=== PATIENT | male | born 1980 | race Caucasian/White ===

== ENCOUNTER → 2018-07-21 16:51 | Outpatient (CLI) | payer OTHER, SELFPAY ==
[2018-07-21 15:40] VITALS: BMI 33.0
[2018-07-21 17:44] LABS: ALB/GLOB Ratio 1.1 RATIO (0.9-2.4); AST(SGOT) 15 U/L (15-37); Alanine Aminotransfer ALT/SGPT 41 U/L (16-61); Alkaline Phosphatase 79 U/L (45-117); Anion Gap 9 (5-15); BUN 10 mg/dL (7-18); BUN/Creat Ratio 10.7 RATIO (10-20); Calcium,Total 9.1 mg/dL (8.5-10.1); Chloride 105 mmol/L (98-107); Creatinine, Serum 0.93 mg/dL (0.70-1.30); EST Glomerular Filtration Rate 96 mL/min (>60); Est Glom Filt Rate - Afr Amer 116 mL/min (>60); Globulin 3.7 g/dL (2.2-4.2); Glucose 163 mg/dL (74-106); Potassium 4.1 mmol/L (3.5-5.1); Protein, Total 7.7 g/dL (6.4-8.2); Sodium Level 141 mmol/L (136-145)
[2018-07-21 17:47] LABS: Microalbumin,Random Urine 10.8 mg/L (NO RANGE EST.); Microalbumin:Creatinine Ratio 8.2 mg/g CRE (<30 mg/g CRE)
[2018-07-21 19:51] LABS: Hemoglobin A1c 8.1 % (4.2-6.3)
== END ==
PROVIDERS: Referring Provider Nurse Practitioner; Visit Provider Nurse Practitioner
DX: E10.9 Type 1 diabetes mellitus without complications (principal)
CPT/HCPCS: 36415; 80053; 82043; 82570; 83036

== ENCOUNTER → 2019-06-01 13:19 | Outpatient (CLI) | payer OTHER, SELFPAY ==
[2018-07-21 15:40] VITALS: BMI 33.0
[2019-06-01 14:49] LABS: Hemoglobin A1c 7.8 % (4.2-6.3)
[2019-06-01 14:50] LABS: Microalbumin,Random Urine 5.2 mg/L (NO RANGE EST.)
[2019-06-01 15:07] LABS: AST(SGOT) 15 U/L (15-37); Alanine Aminotransfer ALT/SGPT 31 U/L (16-61); Albumin, Serum 3.8 g/dL (3.2-5.0); Alkaline Phosphatase 96 U/L (45-117); Anion Gap 6 (5-15); BUN 13 mg/dL (7-18); BUN/Creat Ratio 14.1 RATIO (10-20); Calcium,Total 8.8 mg/dL (8.5-10.1); Chloride 103 mmol/L (98-107); Creatinine, Serum 0.92 mg/dL (0.70-1.30); EST Glomerular Filtration Rate 96 mL/min (>60); Est Glom Filt Rate - Afr Amer 116 mL/min (>60); Globulin 3.9 g/dL (2.2-4.2); Glucose 312 mg/dL (74-106); Protein, Total 7.7 g/dL (6.4-8.2); Sodium Level 134 mmol/L (136-145)
== END ==
PROVIDERS: Referring Provider Nurse Practitioner; Visit Provider Nurse Practitioner
DX: E10.9 Type 1 diabetes mellitus without complications (principal)
CPT/HCPCS: 36415; 80053; 82043; 83036

== ENCOUNTER → 2020-09-01 09:29 | Outpatient (CLI) | payer BC, SELFPAY ==
[2020-09-01 08:35] VITALS: BMI 33.3
[2020-09-01 12:57] LABS: Microalbumin,Random Urine 11.4 mg/L (NO RANGE EST.); Microalbumin:Creatinine Ratio 11.1 mg/g CRE (<30 mg/g CRE)
[2020-09-01 13:07] LABS: AST(SGOT) 15 U/L (15-37); Alanine Aminotransfer ALT/SGPT 35 U/L (16-61); Albumin, Serum 3.9 g/dL (3.2-5.0); Alkaline Phosphatase 84 U/L (45-117); Anion Gap 7 (5-15); BUN 18 mg/dL (7-18); BUN/Creat Ratio 22.2 RATIO (10-20); Chloride 107 mmol/L (98-107); Cholesterol 198 mg/dL (200); Creatinine, Serum 0.81 mg/dL (0.70-1.30); EST Glomerular Filtration Rate 111 mL/min (>60); Est Glom Filt Rate - Afr Amer 134 mL/min (>60); Globulin 3.9 g/dL (2.2-4.2); Glucose 120 mg/dL (74-106); High Density Lipoprotein 52 mg/dL; Potassium 4.4 mmol/L (3.5-5.1); Protein, Total 7.8 g/dL (6.4-8.2); Sodium Level 139 mmol/L (136-145); Triglycerides 100 mg/dL; Very Low Density Lipoprotein 20 mg/dL (5-40)
== END ==
PROVIDERS: Referring Provider Internal Medicine Endocrinology, Diabetes & Metabolism; Visit Provider Internal Medicine Endocrinology, Diabetes & Metabolism
DX: E10.65 Type 1 diabetes mellitus with hyperglycemia (principal)
CPT/HCPCS: 36415; 80053; 80061; 82043; 82570; 84443

== ENCOUNTER 2021-06-14 11:05 | Inpatient (IN) | payer BC, SELFPAY ==
[2021-06-14] VITALS (10 sets, daily range): BP systolic 131–174; BP diastolic 86–103; PULSE 71–125; RESP 14–22; TEMP 35.8–37.2; O2SAT 95–99; BMI 33.3; BMI 33.0
--- NOTE | 2021-06-14 11:08 | NURSING ---
NO OLD EKGS
--- NOTE | 2021-06-14 11:23 | EKG12_ITS ---
Test Reason : CP Blood Pressure : / mmHG Vent. Rate : 077 BPM Atrial Rate : 077 BPM P-R Int : 138 ms QRS Dur : 082 ms QT Int : 356 ms P-R-T Axes : 019 002 054 degrees QTc Int : 402 ms Normal sinus rhythm Normal ECG Confirmed by CABRERA SANDHU, CAMILLE ([id number]), photo editor ENRIQUE RICK ([id number]) on 06/15/2021 11:33:30 AM Referred By: GHAZAL Confirmed By:CMAILLE REES MD
--- NOTE | 2021-06-14 11:24 | EDS_ITS ---
HPI History of Present Illness Chief Complaint: Chest Pain Narrative Narrative: Patient presents from Dr. Pettit's office with signs concerning for angina. He states that over the last few days he has had relatively constant chest pain and tightness. 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 He denies any nausea or vomiting. No diaphoresis. He felt short of breath and had to rest. Past medical history includes type 1 diabetes. He denies any family history of early heart attack was at age 53. No leg swelling. No true exacerbating or alleviating factors over the past few days except for today. He felt more pressure in his chest and GERD-like symptoms, thinking that he may have missed a dose of his famotidine. [facility] Medical History (Updated 06/14/21 @ 12:46 by Jori Whiting MD) Diabetes Hives Seasonal allergies Type 1 diabetes mellitus without complications Home Medications blood sugar diagnostic #10 ea 06/18/18 [History Last Taken Unknown] insulin syringe-needle U-100 1 mL 31 gauge x 11/20 #10 ea 06/18/18 [History Last Taken Unknown] blood-glucose transmitter #1 ea 09/01/20 [Rx Last Taken Unknown] famotidine 20 mg tablet 20 mg PO BID 09/01/20 [History Last Taken 06/14/21 07:00] Humalog U-100 Insulin 100 unit/mL subcutaneous solution See Rx Instructions SC .COMPLEX #90 ml NS 11/28/20 [Rx Last Taken 06/14/21] Dexcom G6 Sensor #9 ea NS 12/08/20 [Rx Last Taken Unknown] cetirizine [Zyrtec] 10 mg PO DAILY 06/14/21 [History Last Taken 06/13/21] Allergy/AdvReac Type Severity Reaction Status Date / Time No Known Allergies Allergy Verified 06/14/21 11:05 Family History Son Diabetes Other Anxiety CAD (coronary artery disease) Depression Surgical History History of tonsillectomy Social History adopted: No Smoking Status: Never smoker Electronic Cigarette Use: not used alcohol intake: current alcohol intake frequency: holidays/special occasions only Alcohol type: beer substance use type: does not use what type of physical activity do you participate in: walking frequency: 5-6 times per week seatbelt use: always do you feel safe at home: Yes ROS ROS ED ROS Narrative Constitutional: No fever, no chills. HEENT: No sore throat. No neck pain. No loss of vision. No rhinorrhea. Cardiovascular: Positive chest tightness, central type chest pain. No palpitations. No pedal edema. Respiratory: No cough, positive shortness of breath with dyspnea on exertion. Abdominal: No abdominal pain. No nausea. No vomiting. Genitourinary: No dysuria. No hematuria. Musculoskeletal: No myalgias. No arthralgias. Neurologic: No headaches. No dizziness. No lightheadedness. Skin: No rash. No change in color. Psychiatric: No depression. No anxiety. EXAM Physical Exam Narrative Exam Narrative: Afebrile. Vital signs noted. HEENT: Normocephalic. Atraumatic. PERRL, EOMI. Neck soft and supple. No point tenderness or step off. Cardiovascular: Regular rate and rhythm. No murmurs, rubs, or gallops appreciated. Respiratory: No tachypnea. Lungs clear to auscultation bilaterally. Gastrointestinal: Abdomen soft, nontender, with normoactive bowel sounds. No rebound or guarding. Neurological: Awake. Alert. Nonfocal, nonlateralizing. Skin: No rash. Normal color. No pallor. Musculoskeletal: No pedal edema. Full range of motion extremities. Const Vital Signs: 06/14/21 11:06 06/14/21 12:23 Temperature 96.5 F L Temperature Source Temporal Pulse Rate 94 71 Respiratory Rate 16 17 Blood Pressure 160/103 H 158/90 H Blood Pressure Mean 122 112 Pulse Ox 99 97 Oxygen Delivery Method Room Air Room Air Heart Score History: Slightly/Non-Suspicious ECG: Normal Age: </= 45 years Risk Factors: 1 or 2 Risk Factors Score: 1 MDM MDM MDM Narrative Medical decision making narrative: Chest pain work-up was pursued. His EKG demonstrates normal sinus rhythm at 77 bpm without ectopy or acute ST changes. I reviewed the EKG that was sent with him which also demonstrates normal sinus rhythm at 69 bpm without ectopy or acute ST changes. He was administered an aspirin here. I will obtain a chest x-ray along with laboratory work including troponin and D-dimer. He does have an elevated blood pressure of 160/103 here. His oxygen saturation is 99% on room air without evidence of hypoxia. He has a normal CBC with hemoglobin stable at 14.3, normal platelet count. D- dimer is negative. Basic metabolic panel is grossly normal. His troponin is elevated at 785. Chest x-ray shows no acute process. Given his non- STEMI/elevated troponin, I discussed the patient with Dr. Barrett. He would like the patient to be given Brilinta in addition to the aspirin already given, and started on a heparin drip with a bolus. He was started on weight-based heparin. Patient was discussed with the hospitalist for admission to the PCU. He has the possibility of going to the catheterization lab tomorrow morning so he should be made n.p.o. after midnight. Disposition is admit in stable condition. Lab Data Attestation: I reviewed the patient's lab results. Labs: Laboratory Results - last 24 hr 06/14/21 06/14/21 06/14/21 11:45 11:45 11:45 WBC 7.2 RBC 5.67 Hgb 14.3 Hct 44.0 MCV 77.6 L MCH 25.2 L MCHC 32.5 RDW Std Deviation 38.6 RDW Coeff of Dayana 13.8 Plt Count 335 MPV 9.1 Immature Gran % (Auto) 0.300 Neut % (Auto) 75.2 H Lymph % (Auto) 15.9 L Hooker % (Auto) 6.5 Eos % (Auto) 1.5 Baso % (Auto) 0.6 Absolute Neuts (auto) 5.4 Absolute Lymphs (auto) 1.15 Nucleated RBC % 0 PT INR APTT D-Dimer Quant (PE/DVT) <= 0.27 Sodium 140 Potassium 4.1 Chloride 104 Carbon Dioxide 25.0 Anion Gap 11 BUN 14 Creatinine 0.91 Estim Creat Clear Calc 98.87 Est GFR (MDRD) Af Amer 117 Est GFR (MDRD) Non-Af 97 BUN/Creatinine Ratio 15.4 Glucose 82 Calcium 10.0 Troponin I High Sens 785 H* 06/14/21 11:45 WBC RBC Hgb Hct MCV MCH MCHC RDW Std Deviation RDW Coeff of Dayana Plt Count MPV Immature Gran % (Auto) Neut % (Auto) Lymph % (Auto) Hooker % (Auto) Eos % (Auto) Baso % (Auto) Absolute Neuts (auto) Absolute Lymphs (auto) Nucleated RBC % PT 12.2 INR 1.0 APTT 27.7 D-Dimer Quant (PE/DVT) Sodium Potassium Chloride Carbon Dioxide Anion Gap BUN Creatinine Estim Creat Clear Calc Est GFR (MDRD) Af Amer Est GFR (MDRD) Non-Af BUN/Creatinine Ratio Glucose Calcium Troponin I High Sens Radiography Diagnostic Testing: Clinical Impression(s) from Imaging Studies Chest X-Ray 06/14/21 11:56 IMPRESSION: Normal x-ray examination of the chest. Electronically Signed: Girma Clayton MD at 12:29 EST , Service support , Critical Care Time Critical care time (excluding procedures): 30-74 minutes (32), Including time spent:, Discussing w/Patient &/or Family/Behavioral Health Consultant, Discussing w/Consultants and Arranging Admission or Transfer Discharge Plan Dx/Rx/DC Orders Clinical Impression: Chest pain, Non-ST elevated myocardial infarction (non-STEMI) Disposition Disposition: Acute Care Hospital [facility] Discharge Date/Time: 06/14/21 13:32
--- NOTE | 2021-06-14 11:56 | RAD_ITS ---
STUDY: X-RAY CHEST REASON FOR EXAM: Male, 40 years old. Chest pain TECHNIQUE: Single AP portable view of the chest. COMPARISON: None. FINDINGS: EKG electrodes are seen. The lungs are clear and expanded. There is no demonstrated pleural abnormality. Normal size heart. Normal mediastinum and gregorio. Normal visualized pulmonary arteries. Normal visualized aortic arch and descending thoracic aorta. Normal visualized thoracic spine. Normal visualized ribs, clavicles, and shoulders. There is no demonstrated abnormality of the visualized soft tissue structures of the upper abdomen. RAD/Chest 1 View (Portable) IMPRESSION: Normal x-ray examination of the chest. Electronically Signed: Girma Clayton MD at 12:29 EST , Service support ,
[2021-06-14] MEDS: Aspirin 81 MG TAB.CHEW 324 MG PO (11:59)
[2021-06-14 12:03] LABS: Absolute Lymphocyte Count 1.15 X10^3/uL (0.83-4.51); Absolute Neutrophil Count 5.4 X10^3/uL (2.0-7.7); Basophil# 0.04 X10^3/uL; Basophil% 0.6 % (0-1); Eosinophil# 0.11 X10^3/uL; Eosinophils% 1.5 % (0-5); Hemoglobin 14.3 g/dL (13.0-16.5); Lymphocyte # 1.15 X10^3/ul (0.83-4.51); Lymphocyte % 15.9 % (19-41); Mean Corp Hgb Conc 32.5 g/dL (32-36); Mean Corpuscular Hgb 25.2 pg (27.0-32.0); Mean Corpuscular Volume 77.6 fL (80-94); Mean Platelet Vol. 9.1 fl (6.2-12.0); Monocyte# 0.47 X10^3/uL; Monocyte% 6.5 % (0-10); NRBC Flagged by Analyzer 0 % (0-5); Neutrophil # 5.44 X10^3/uL (2.7-7.7); Neutrophil % 75.2 % (47-70); Platelet Count 335 K/mm3 (150-450); RBC Distribution Width CV 13.8 % (11.6-14.6); RBC Distribution Width SD 38.6 fl (35.1-43.9); Red Blood Count 5.67 M/mm3 (4.6-6.2); White Blood Count 7.2 K/mm3 (4.4-11.0)
[2021-06-14 12:22] LABS: Anion Gap 11 (5-15); BUN 14 mg/dL (7-18); BUN/Creat Ratio 15.4 RATIO (10-20); Chloride 104 mmol/L (98-107); Creatinine, Serum 0.91 mg/dL (0.70-1.30); EST Glomerular Filtration Rate 97 mL/min (>60); Est Glom Filt Rate - Afr Amer 117 mL/min (>60); Estimated Creatinine Clearance 98.87 ml/min; Glucose 82 mg/dL (74-106); Potassium 4.1 mmol/L (3.5-5.1); Sodium Level 140 mmol/L (136-145); Troponin-I HS 785 pg/mL (3.0-78.0)
[2021-06-14 12:28] LABS: D-Dimer Quantitative (DVT/PE) <= 0.27 FEU/ug/m (0.27-0.49)
--- NOTE | 2021-06-14 12:47 | PCM.HP.STD ---
HPI - General General Date of Admission: 06/14/21 Date of Service: 06/14/21 Chief Complaint: Chest pain - 3 days HPI Narrative MALU TORIBIO, is a 40 M who presents with chest pain ongoing for 3 days. Patient had complained of chest discomfort that was substernal. He thought it was due to indigestion. This got worse today. It radiated to his left arm. Denied any dizziness or palpitations or orthopnea or PND. He went to his primary care doctor, EKG was unremarkable. Primary care doctor however sent him to the ED. At time of being seen, his vitals are stable. His EKG shows no acute ST changes. Troponins are 1255. D-dimer is unremarkable. Chest x-ray is unremarkable [facility] Medical History Diabetes Hives Seasonal allergies Type 1 diabetes mellitus without complications Home Medications blood sugar diagnostic #10 ea 06/18/18 [History Last Taken Unknown] insulin syringe-needle U-100 1 mL 31 gauge x 11/20 #10 ea 06/18/18 [History Last Taken Unknown] blood-glucose transmitter #1 ea 09/01/20 [Rx Last Taken Unknown] famotidine 20 mg tablet 20 mg PO BID 09/01/20 [History Last Taken 06/14/21 07:00] Humalog U-100 Insulin 100 unit/mL subcutaneous solution See Rx Instructions SC .COMPLEX #90 ml NS 11/28/20 [Rx Last Taken 06/14/21] Dexcom G6 Sensor #9 ea NS 12/08/20 [Rx Last Taken Unknown] cetirizine [Zyrtec] 10 mg PO DAILY 06/14/21 [History Last Taken 06/13/21] Allergy/AdvReac Type Severity Reaction Status Date / Time No Known Allergies Allergy Verified 06/14/21 11:05 Family History Son Diabetes Other Anxiety CAD (coronary artery disease) Depression Surgical History History of tonsillectomy Social History adopted: No Smoking Status: Never smoker Electronic Cigarette Use: not used alcohol intake: current alcohol intake frequency: holidays/special occasions only Alcohol type: beer substance use type: does not use what type of physical activity do you participate in: walking frequency: 5-6 times per week seatbelt use: always do you feel safe at home: Yes ROS ROS Narrative Constitutional: Denies: Anorexia, Chills, Fever, Night Sweats, Weight Change Eyes: Denies: Blurred vision, Cataracts, Conjunctivae Inflammation, Pain, Redness, Vision Change HEENT: Denies: Difficulty Hearing, Difficulty Swallowing, Head Aches, Hearing Changes, Sinus Congestion, Sinus Drainage Cardiovascular: See HPI Respiratory: Denies: Cough, Shortness of breath at rest, Sputum production Gastrointestinal: Denies: Abdominal Pain, Nausea, Vomiting Genitourinary: Denies: Dysuria Musculoskeletal: Denies: Joint Pain, Joint stiffness, Joint swelling, Joint Tenderness Skin: Denies: Rash, Wounds Neurological: Denies: Numbness, Tingling, Focal weakness Vital Signs Vital Signs Vital Signs: 06/14/21 11:06 06/14/21 12:23 Temperature 96.5 F L Temperature Source Temporal Pulse Rate 94 71 Respiratory Rate 16 17 Blood Pressure 160/103 H 158/90 H Blood Pressure Mean 122 112 Pulse Ox 99 97 Oxygen Delivery Method Room Air Room Air Weight Weight: 96.6 kg Body Mass Index (BMI) 33.3 Physical Exam Narrative Physical exam: General: Alert, Oriented x3, Cooperative, No apparent distress, Well developed HEENT: Atraumatic Oral: Moist Mucosa Neck: Supple Lungs: Clear to auscultation Cardiovascular: HS I+II, regular, no murmurs Abdomen: Bowel Sounds Present, Soft, Non Tender Extremities: No edema Results Lab / Micro Data Result Diagrams: 06/14/21 11:45 06/14/21 11:45 Labs: Laboratory Results - last 24 hr 06/14/21 11:45: WBC 7.2, RBC 5.67, Hgb 14.3, Hct 44.0, MCV 77.6 L, MCH 25.2 L, MCHC 32.5, RDW Std Deviation 38.6, RDW Coeff of Dayana 13.8, Plt Count 335, MPV 9.1, Immature Gran % (Auto) 0.300, Neut % (Auto) 75.2 H, Lymph % (Auto) 15.9 L, Fergus % (Auto) 6.5, Eos % (Auto) 1.5, Baso % (Auto) 0.6, Absolute Neuts (auto) 5.4, Absolute Lymphs (auto) 1.15, Nucleated RBC % 0 06/14/21 11:45: D-Dimer Quant (PE/DVT) <= 0.27 06/14/21 11:45: Sodium 140, Potassium 4.1, Chloride 104, Carbon Dioxide 25.0, Anion Gap 11, BUN 14, Creatinine 0.91, Estim Creat Clear Calc 98.87, Est GFR (MDRD) Af Amer 117, Est GFR (MDRD) Non-Af 97, BUN/Creatinine Ratio 15.4, Glucose 82, Calcium 10.0, Troponin I High Sens 785 H* Radiology Impression Chest X-Ray 06/14/21 11:56 IMPRESSION: Normal x-ray examination of the chest. Electronically Signed: Girma Clayton MD at 12:29 EST , Service support , Assessment & Plan Assessment/Plan (1) Chest pain: (2) Non-ST elevated myocardial infarction (non-STEMI): (3) Diabetes mellitus type 1, uncontrolled, without complications: (4) Presence of insulin pump: PLAN: 1. Acute non-STEMI, in a patient with history of type I DM EKG shows no acute ST-T changes, troponin is 1255 Cardiology consulted from the ED Received aspirin and Brilinta, started on heparin drip We will trend troponins 2. Type I DM, on insulin pump, continue same 3. Hypertension, uncontrolled, will start on Coreg Continue to monitor Charges/Coding Visit Charges Inpatient E&M: 33804 Init Hosp L3
[2021-06-14] MEDS: TICAGRELOR 90 MG TABLET 180 MG PO (13:00)
[2021-06-14] MEDS: Heparin Injection (Vial) 5,000 UNIT/ML VIAL 7500 UNIT IV (13:05)
[2021-06-14] MEDS: HEPARIN/D5w 25,000 UNITS 25,000 UNITS/250 ML IV.SOLN. 14 UNITS IV (13:06)
--- NOTE | 2021-06-14 13:06 | NURSING ---
PCU [facility] NON STEMI
[2021-06-14 13:40] LABS: Prothrombin Time (Protime)PT. 12.2 SECONDS (11.7-14.9)
[2021-06-14 13:41] LABS: Partial Thromboplast Time 27.7 Seconds (24.1-36.2)
--- NOTE | 2021-06-14 13:50 | PCS.PANDOC ---
PANDEMIC DOCUMENTATION INITIATED: Date: 02/20/2021 Time: 190
--- NOTE | 2021-06-14 13:57 | ECHOD_ITS ---
Reason For Study: S/P CO Procedure This was a 2D Doppler, Color Flow transthoracic echocardiogram. The study was technically difficult. Exam performed portable in patient room. Left Ventricle Normal LV size. Left ventricular systolic function is normal. The estimated ejection fraction is 55 %. No evidence for diastolic dysfunction. No regional wall motion abnormalities noted. Right Ventricle Normal RV size. Normal systolic function. Atria Normal left atrium. Normal right atrium. No doppler evidence for ASD. Bubble contrast study negative for right to left interatrial shunt. Mitral Valve There is no mitral annular calcification. Normal mitral valve. Trivial mitral valve insufficiency. Tricuspid Valve Normal tricuspid valve. Trivial tricuspid valve insufficiency. Right ventricular systolic pressure estimated to be 23 mmHg. Aortic Valve Trisinus/trileaflet aortic valve. Normal aortic valve. Trivial eccentric aortic valve insufficiency. Pulmonic Valve The pulmonic valve is not well visualized. Great Vessels Normal sized aortic root. Pericardium/Pleural No pericardial effusion. Medication Performed a rapid injection of agitated mix of 9 cc saline and 1cc air to assess for atrial septal defect. MMode/2D Measurements & Calculations LVIDd: 4.2 cm IVSd: 0.98 cm Ao root diam: 3.0 cm LVIDs: 3.0 cm LVPWd: 0.97 cm RVDd: 3.0 cm FS: 29.1 % LAV(MOD-bp): 24.7 ml LVAd ap4: 24.6 cm2 LVAd ap2: 28.0 cm2 LAV(MOD-bp) Indexed: 12.0 ml/m2 LVLd ap4: 7.9 cm LVLd ap2: 7.8 cm LAV(MOD-sp2): 25.9 ml EDV(MOD-sp4): 62.8 ml EDV(MOD-sp2): 84.3 ml LAV(MOD-sp4): 23.9 ml EDV(sp4-el): 65.0 ml EDV(sp2-el): 85.6 ml LVAs ap4: 13.9 cm2 LVAs ap2: 16.3 cm2 LVLs ap4: 6.5 cm LVLs ap2: 6.3 cm ESV(MOD-sp4): 25.1 ml ESV(MOD-sp2): 35.9 ml ESV(sp4-el): 25.1 ml ESV(sp2-el): 35.9 ml EF(MOD-sp4): 60.1 % EF(MOD-sp2): 57.4 % EF(sp4-el): 61.5 % SV(MOD-sp4): 37.7 ml SV(MOD-sp2): 48.4 ml SV(sp4-el): 40.0 ml LA A4 area: 11.9 cm2 LA dimension(2D): 3.6 cm RA A4 area: 11.2 cm2 Time Measurements MV dec time: 0.20 sec Doppler Measurements & Calculations MV E max anand: 71.1 cm/sec Lat Peak E' Anand: 14.3 cm/sec Med Peak E' Anand: 8.6 cm/sec MV A max anand: 73.4 cm/sec E/E' lat: 5.0 E/E' med: 8.3 MV E/A: 0.97 Ao V2 max: 122.8 cm/sec LV V1 max: 80.4 cm/sec PA V2 max: 133.3 cm/sec Ao max P.0 mmHg LV V1 max P.6 mmHg TR max anand: 222.8 cm/sec TR max P.9 mmHg ECHO/Echo Complete Interpretation Summary The study was technically difficult. Left ventricular systolic function is normal. The estimated ejection fraction is 55 %. Trivial mitral valve insufficiency. Trivial tricuspid valve insufficiency. Trivial eccentric aortic valve insufficiency. Right ventricular systolic pressure estimated to be 23 mmHg. No evidence for diastolic dysfunction. Ordering Physician: Deepak Barrett Referring Physician: KWAME SORIANO Performed By: Oralia Mcneal RDCS
--- NOTE | 2021-06-14 14:09 | CASEMGMT ---
According to [facility] website, the following are in-network tertiary facilities: [facility], [facility], [facility], [facility], [facility], [facility], [facility], and . Bret CRUZ CM
[2021-06-14 14:44] LABS: Troponin-I HS 1255 pg/mL (3.0-78.0)
--- NOTE | 2021-06-14 16:00 | NURSING ---
Patient has own insulin pump. Per Dr. Annabella cha to monitor patient's BG with his pump.
[2021-06-14 18:24] LABS: Troponin-I HS 1355 pg/mL (3.0-78.0)
--- NOTE | 2021-06-14 18:30 | CON.PCM.CA_ITS ---
Assessment & Plan Assessment/Plan (1) Non-ST elevated myocardial infarction (non-STEMI): PLAN: The patient has cardiovascular risk factors. He presents with symptoms concerning for unstable angina pectoris/an acute cor onary syndrome. His cardiac enzymes are elevated. His ECG has not demonstrated any acute ECG changes. His echocardiogram is as noted. At the moment without other obvious etiologies to explain his symptoms or cardiac enzyme findings the concern is that he has experienced an acute non-ST segment elevation CA. He appears to be symptomatically improved at this time on his current medical regimen. He will continue to be followed with his medications being adjusted as deemed appropriate. He has been recommended for further evaluation with diagnostic cardiac catheterization. The procedure and risk were discussed with him. He is agreeable to this approach. (2) Diabetes: QUALIFIERS: Diabetes mellitus type: type 1 Diabetes mellitus complication status: with hyperglycemia Qualified Code(s): E10.65 - Type 1 diabetes mellitus with hyperglycemia PLAN: He will continue evaluation care per internal medicine. (3) HTN (hypertension): PLAN: His blood pressure was noted to be elevated. This will need to be followed. He may need further medication adjustment. Addt'l Comments The patient's case has been previously discussed with the [facility] emergency department staff and the [facility] hospital staff. This note was generated using a voice recognition system and there may be incorrect words, spelling or punctuation that were not noted when reviewing the office note prior to saving. HPI Consult Data Date of Consult: 06/14/21 HPI Narrative HPI Narrative: MALU TORIBIO, is a 40 year old white male who presents for cardiovascular consultation based upon concerns of chest discomfort concerning for unstable angina pectoris/acute coronary syndrome and objective findings compatible with acute non-ST segment elevation CA superimposed upon a history of diabetes mellitus-type I. He states that yesterday he noted a chest discomfort which radiated to his throat with a acid sensation that he felt was related to GERD. However this symptom waxed and waned through the night and into this day. Today while at work with walking he noted worsening chest discomfort which radiated towards his left chest and his back and was associated with shortness of breath and dyspnea. He had to stop and rest to feel better. He presented to his PCP office for further evaluation. An ECG was performed which demonstrated sinus rhythm with no acute changes. He was referred to the emergency department for further evaluation. There he underwent additional evaluation with cardiac enzymes which demonstrated an abnormal high-sensitivity troponin I level. A repeat ECG demonstrated sinus rhythm with no acute changes. He had no other obvious etiology for his symptoms and his cardiac enzyme levels. Thus he was admitted to the PCU for further evaluation and care for concerns of an acute non-ST segment elevation CA. Since being in the PCU and at rest he states every thing seems to be calming down. He is not complaining of ongoing discomfort at this time. There is been no history of orthopnea or PND or peripheral pitting edema. He denies near syncope or syncope. He states he has had a insulin pump since approximately the age of 20-22. He notes his hemoglobin A1c runs at approximately 7.2. He does not recall having any definitive issues with respect to hyperlipidemia or hypertension. He has not gone through other cardiovascular testing in the past. Since being in the PCU he has been placed on medical therapy. This has included aspirin therapy, antiplatelet therapy with ticagrelor/Brilinta, anticoagulant therapy with IV heparin, and beta-linda therapy. His follow-up troponin I level has increased. Additional levels are pending. A follow-up ECG is pending. Lipid labs are pending as well. He did undergo evaluation with a transthoracic echocardiogram. The results are noted below. REPLACED BY [facility] Medical History (Updated 06/14/21 @ 18:[address] Deepak Barrett MD) Diabetes Hives Seasonal allergies Type 1 diabetes mellitus without complications Home Medications blood sugar diagnostic #10 ea 06/18/18 [History Last Taken Unknown] insulin syringe-needle U-100 1 mL 31 gauge x 11/20 #10 ea 06/18/18 [History Last Taken Unknown] blood-glucose transmitter #1 ea 09/01/20 [Rx Last Taken Unknown] famotidine 20 mg tablet 20 mg PO BID 09/01/20 [History Last Taken 06/14/21 07:00] Humalog U-100 Insulin 100 unit/mL subcutaneous solution See Rx Instructions SC .COMPLEX #90 ml NS 11/28/20 [Rx Last Taken 06/14/21] Dexcom G6 Sensor #9 ea NS 12/08/20 [Rx Last Taken Unknown] cetirizine [Zyrtec] 10 mg PO DAILY 06/14/21 [History Last Taken 06/13/21] Allergy/AdvReac Type Severity Reaction Status Date / Time No Known Allergies Allergy Verified 06/14/21 11:05 Family History Son Diabetes Other Anxiety CAD (coronary artery disease) Depression Surgical History History of tonsillectomy Social History adopted: No Smoking Status: Never smoker Electronic Cigarette Use: not used alcohol intake: current alcohol intake frequency: holidays/special occasions only Alcohol type: beer substance use type: does not use what type of physical activity do you participate in: walking frequency: 5-6 times per week seatbelt use: always do you feel safe at home: Yes ROS Constitutional Constitutional: Reports as per HPI Eyes Eyes: Reports as per HPI ENT HEENT: Reports as per HPI Cardiovascular Cardiovascular: Reports chest pain at rest, chest pain with activity and dyspnea on exertion Respiratory/Chest Respiratory/Chest: Reports dyspnea on exertion Gastrointestinal Gastrointestinal: Reports as per HPI Genitourinary Genitourinary: Reports as per HPI Musculoskeletal Musculoskeletal: Reports as per HPI Integumentary Integumentary: Reports as per HPI Neurologic Neurologic: Reports as per HPI Physical Exam Const alert, oriented x3, no apparent distress and healthy appearing Orientation / Consciousness: awake HEENT normocephalic, head/scalp atraumatic and hearing grossly normal bilaterally Eyes PERRL, EOMs intact bilaterally and conjunctivae normal Neck full ROM, supple and no JVD Resp clear to auscultation bilaterally Cardio regular rate, regular rhythm, S1 normal heart sound and S2 normal heart sound GI normal to inspection, nondistended, normoactive bowel sounds Extremity no pedal edema Skin no rashes or lesions noted Neuro oriented x3, moves all extremities, no focal motor deficits and no sensory deficits noted Psych mental status grossly normal Risk Stratification Risk Stratification Applicable: Yes Age >/= 65: No >/= 3 CAD Risk Factors (HTN, HLD, DM, family hx of CAD, or current smoker): No Aspirin Use in the Past 7 Days: No Severe Angina (>/= episodes in 24 hours): Yes EKG ST Changes >/= 0.5mm: No Positive Cardiac Marker: Yes RUBEN Risk Stratification Score: 2 RUBEN % Risk: 8% Risk Procedure Criteria Type of Procedure Procedure Type: Elective Elective Risks - COVID COVID Risk Discussion: The surgeon/proceduralist and patient have discussed in detail the risk of exposure to and/or potential harm posed by the COVID-19 virus with having a surgery/procedure at this time versus the risk of delaying the surgery/procedure. It is not possible to know either the risk of delaying the surgery or procedure or chance of getting an infection with perfect accuracy, but a joint decision was made between the patient and the surgeon/proceduralist to proceed at this time with the scheduled surgery/procedure as indicated on the consent form. Objective Data Vital Signs: Vital Signs Temp Pulse Resp BP Pulse Ox 97.8 F 108 H 18 150/92 H 99 06/14/21 17:45 06/14/21 17:45 06/14/21 17:45 06/14/21 17:45 06/14/21 17:45 Oxygen Delivery Method Room Air Weight: 211 lb 3.245 oz Body Mass Index (BMI) 33.0 Intake & Output: Intake and Output for Last 24 Hours 06/12/21 06/13/21 06/14/21 23:59 23:59 23:59 Intake Total 240 / 240 Balance 240 / 240 Lab / Micro Data Result Diagrams: 06/14/21 11:45 06/14/21 11:45 Labs: Laboratory Results - last 24 hr 06/14/21 11:45: WBC 7.2, RBC 5.67, Hgb 14.3, Hct 44.0, MCV 77.6 L, MCH 25.2 L, MCHC 32.5, RDW Std Deviation 38.6, RDW Coeff of Dayana 13.8, Plt Count 335, MPV 9.1, Immature Gran % (Auto) 0.300, Neut % (Auto) 75.2 H, Lymph % (Auto) 15.9 L, [place] % (Auto) 6.5, Eos % (Auto) 1.5, Baso % (Auto) 0.6, Absolute Neuts (auto) 5.4, Absolute Lymphs (auto) 1.15, Nucleated RBC % 0 06/14/21 11:45: D-Dimer Quant (PE/DVT) <= 0.27 06/14/21 11:45: Sodium 140, Potassium 4.1, Chloride 104, Carbon Dioxide 25.0, Anion Gap 11, BUN 14, Creatinine 0.91, Estim Creat Clear Calc 98.87, Est GFR (MDRD) Af Amer 117, Est GFR (MDRD) Non-Af 97, BUN/Creatinine Ratio 15.4, Glucose 82, Calcium 10.0, Troponin I High Sens 785 H* 06/14/21 11:45: PT 12.2, INR 1.0, APTT 27.7 06/14/21 14:02: Troponin I High Sens 1255 H* 06/14/21 17:20: Troponin I High Sens 1355 H* Cardiology Labs/Tests 06/14/21 11:45: WBC 7.2, RBC 5.67, Hgb 14.3, Hct 44.0, MCV 77.6 L, MCH 25.2 L, MCHC 32.5, Plt Count 335, MPV 9.1, Immature Gran % (Auto) 0.300, Neut % (Auto) 75.2 H, Lymph % (Auto) 15.9 L, [place] % (Auto) 6.5, Eos % (Auto) 1.5, Baso % (Auto) 0.6, Absolute Neuts (auto) 5.4, Nucleated RBC % 0 06/14/21 11:45: D-Dimer Quant (PE/DVT) <= 0.27 06/14/21 11:45: Sodium 140, Potassium 4.1, Chloride 104, Carbon Dioxide 25.0, Anion Gap 11, BUN 14, Creatinine 0.91, Est GFR (MDRD) Af Amer 117, Est GFR (MDRD) Non-Af 97, BUN/Creatinine Ratio 15.4, Glucose 82, Calcium 10.0 06/14/21 11:45: PT 12.2, INR 1.0, APTT 27.7 Rhythm: Sinus rhythm EKG: Sinus rhythm ECHO: As noted below Radiography Diagnostic Testing: Radiology Impression Chest X-Ray 06/14/21 11:56 IMPRESSION: Normal x-ray examination of the chest. Electronically Signed: Girma Clayton MD at 12:29 EST , Service support , Echocardiogram 06/14/21 13:57 Interpretation Summary The study was technically difficult. Left ventricular systolic function is normal. The estimated ejection fraction is 55 %. Trivial mitral valve insufficiency. Trivial tricuspid valve insufficiency. Trivial eccentric aortic valve insufficiency. Right ventricular systolic pressure estimated to be 23 mmHg. No evidence for diastolic dysfunction. Ordering Physician: Deepak Barrett Referring Physician: KWAME SORIANO Performed By: Oralia Mcneal RDCS
[2021-06-14 20:33] LABS: Partial Thromboplast Time 150.8 Seconds (24.1-36.2)
[2021-06-14] MEDS: Carvedilol 6.25 MG Tablet PO (20:43)
[2021-06-14] MEDS: TICAGRELOR 90 MG TABLET PO (21:13)
[2021-06-14] MEDS: 0.9% Saline Lock 10 ML Syringe IV (23:17)
[2021-06-15] VITALS (19 sets, daily range): BP systolic 98–151; BP diastolic 66–135; PULSE 78–97; RESP 14–18; TEMP 36.6–37.7; O2SAT 96–100
--- NOTE | 2021-06-15 | NURSING ---
Patient removed insulin pump around 0000 as ordered for procedure in AM. Glucose monitoring sensor in place and patient watching BS coverage available at this time patient doesn't want coverage.
--- NOTE | 2021-06-15 02:03 | NURSING ---
Blood sugar checked and decreasing per patient glucose monitoring sensor. Patient declines to have any coverage at this time.
[2021-06-15] MEDS: 0.9% Saline Lock 10 ML Syringe IV ×2 (04:05→07:58)
--- NOTE | 2021-06-15 05:55 | EKG12_ITS ---
Test Reason : AM EKG Blood Pressure : / mmHG Vent. Rate : 080 BPM Atrial Rate : 080 BPM P-R Int : 130 ms QRS Dur : 084 ms QT Int : 370 ms P-R-T Axes : 001 005 034 degrees QTc Int : 426 ms Normal sinus rhythm Poor R wave progression Confirmed by ZOILA SANDHU, LUCINA ([id number]), pharmacology associate ENRIQUE RICK ([id number]) on 06/16/2021 7:52:12 AM Referred By: LUISA Confirmed By:LUCINA CUMMINGS MD
[2021-06-15] MEDS: TICAGRELOR 90 MG TABLET PO ×2 (06:13→20:09)
[2021-06-15] MEDS: Carvedilol 6.25 MG Tablet PO (06:13)
[2021-06-15 06:22] LABS: Absolute Lymphocyte Count 1.23 X10^3/uL (0.83-4.51); Absolute Neutrophil Count 6.3 X10^3/uL (2.0-7.7); Basophil# 0.04 X10^3/uL; Basophil% 0.5 % (0-1); Eosinophil# 0.17 X10^3/uL; Hemoglobin 14.4 g/dL (13.0-16.5); Lymphocyte # 1.23 X10^3/ul (0.83-4.51); Lymphocyte % 14.6 % (19-41); Mean Corpuscular Hgb 25.1 pg (27.0-32.0); Mean Corpuscular Volume 78.4 fL (80-94); Mean Platelet Vol. 9.4 fl (6.2-12.0); Monocyte% 8.3 % (0-10); NRBC Flagged by Analyzer 0 % (0-5); Neutrophil # 6.27 X10^3/uL (2.7-7.7); Neutrophil % 74.2 % (47-70); Platelet Count 351 K/mm3 (150-450); RBC Distribution Width CV 14.1 % (11.6-14.6); RBC Distribution Width SD 39.3 fl (35.1-43.9); Red Blood Count 5.74 M/mm3 (4.6-6.2); White Blood Count 8.4 K/mm3 (4.4-11.0)
[2021-06-15 07:12] LABS: ALB/GLOB Ratio 0.9 RATIO (0.9-2.4); AST(SGOT) 33 U/L (15-37); Alanine Aminotransfer ALT/SGPT 37 U/L (16-61); Albumin, Serum 3.8 g/dL (3.2-5.0); Alkaline Phosphatase 70 U/L (45-117); Anion Gap 8 (5-15); BUN 13 mg/dL (7-18); BUN/Creat Ratio 13.7 RATIO (10-20); Calcium,Total 9.1 mg/dL (8.5-10.1); Chloride 104 mmol/L (98-107); Cholesterol 163 mg/dL (200); Creatinine, Serum 0.95 mg/dL (0.70-1.30); EST Glomerular Filtration Rate 93 mL/min (>60); Est Glom Filt Rate - Afr Amer 112 mL/min (>60); Globulin 4.1 g/dL (2.2-4.2); Glucose 79 mg/dL (74-106); High Density Lipoprotein 49 mg/dL; Potassium 4.2 mmol/L (3.5-5.1); Protein, Total 7.9 g/dL (6.4-8.2); Sodium Level 137 mmol/L (136-145); Triglycerides 71 mg/dL; Troponin-I HS 1901 pg/mL (3.0-78.0); Very Low Density Lipoprotein 14 mg/dL (5-40)
--- NOTE | 2021-06-15 07:33 | PN.CARD_ITS ---
Subjective Subjective The patient is awake and alert this morning. He states when he was up and ambulating in his room to the bathroom he did feel an element of chest discomfort. Again it radiated towards his back. After resting he states his symptoms dissipated. He states he is resting comfortably at the moment. Objective Data Vital Signs: Vital Signs Temp Pulse Resp BP Pulse Ox 99.8 F H 85 16 128/85 H 98 06/15/21 06:30 06/15/21 06:30 06/15/21 06:30 06/15/21 06:30 06/15/21 06:30 Oxygen Delivery Method Room Air Weight: 210 lb 12.191 oz Body Mass Index (BMI) 33.0 Intake & Output: Intake and Output for Last 24 Hours 06/13/21 06/14/21 06/15/21 23:59 23:59 23:59 Intake Total 347.1 / 347.1 153.17 / 153.17 Output Total 150 / 150 Balance 347.1 / 347.1 3.17 / 3.17 Lab / Micro Data Result Diagrams: 06/15/21 05:46 06/15/21 05:46 Labs: Laboratory Results - last 24 hr 06/14/21 11:45: WBC 7.2, RBC 5.67, Hgb 14.3, Hct 44.0, MCV 77.6 L, MCH 25.2 L, MCHC 32.5, RDW Std Deviation 38.6, RDW Coeff of Dayana 13.8, Plt Count 335, MPV 9.1, Immature Gran % (Auto) 0.300, Neut % (Auto) 75.2 H, Lymph % (Auto) 15.9 L, [place] % (Auto) 6.5, Eos % (Auto) 1.5, Baso % (Auto) 0.6, Absolute Neuts (auto) 5.4, Absolute Lymphs (auto) 1.15, Nucleated RBC % 0 06/14/21 11:45: D-Dimer Quant (PE/DVT) <= 0.27 06/14/21 11:45: Sodium 140, Potassium 4.1, Chloride 104, Carbon Dioxide 25.0, Anion Gap 11, BUN 14, Creatinine 0.91, Estim Creat Clear Calc 98.87, Est GFR (MDRD) Af Amer 117, Est GFR (MDRD) Non-Af 97, BUN/Creatinine Ratio 15.4, Glucose 82, Calcium 10.0, Troponin I High Sens 785 H* 06/14/21 11:45: PT 12.2, INR 1.0, APTT 27.7 06/14/21 14:02: Troponin I High Sens 1255 H* 06/14/21 17:20: Troponin I High Sens 1355 H* 06/14/21 19:15: APTT 150.8 H* 06/15/21 05:46: WBC 8.4, RBC 5.74, Hgb 14.4, Hct 45.0, MCV 78.4 L, MCH 25.1 L, MCHC 32.0, RDW Std Deviation 39.3, RDW Coeff of Dayana 14.1, Plt Count 351, MPV 9.4, Immature Gran % (Auto) 0.400, Neut % (Auto) 74.2 H, Lymph % (Auto) 14.6 L, [place] % (Auto) 8.3, Eos % (Auto) 2.0, Baso % (Auto) 0.5, Absolute Neuts (auto) 6.3, Absolute Lymphs (auto) 1.23, Nucleated RBC % 0 06/15/21 05:46: Sodium 137, Potassium 4.2, Chloride 104, Carbon Dioxide 25.0, Anion Gap 8, BUN 13, Creatinine 0.95, Estim Creat Clear Calc 94.70, Est GFR (MDRD) Af Amer 112, Est GFR (MDRD) Non-Af 93, BUN/Creatinine Ratio 13.7, Glucose 79, Calcium 9.1, Total Bilirubin 0.60, AST 33, ALT 37, Alkaline Phosphatase 70, Troponin I High Sens 1901 H*, Total Protein 7.9, Albumin 3.8, Globulin 4.1, Albumin/Globulin Ratio 0.9, Triglycerides 71, Cholesterol 163, LDL Cholesterol 100, VLDL Cholesterol 14, HDL Cholesterol 49 Cardiology Labs/Tests 06/14/21 11:45: WBC 7.2, RBC 5.67, Hgb 14.3, Hct 44.0, MCV 77.6 L, MCH 25.2 L, MCHC 32.5, Plt Count 335, MPV 9.1, Immature Gran % (Auto) 0.300, Neut % (Auto) 75.2 H, Lymph % (Auto) 15.9 L, [place] % (Auto) 6.5, Eos % (Auto) 1.5, Baso % (Auto) 0.6, Absolute Neuts (auto) 5.4, Nucleated RBC % 0 06/14/21 11:45: D-Dimer Quant (PE/DVT) <= 0.27 06/14/21 11:45: Sodium 140, Potassium 4.1, Chloride 104, Carbon Dioxide 25.0, Anion Gap 11, BUN 14, Creatinine 0.91, Est GFR (MDRD) Af Amer 117, Est GFR (MDRD) Non-Af 97, BUN/Creatinine Ratio 15.4, Glucose 82, Calcium 10.0 06/14/21 11:45: PT 12.2, INR 1.0, APTT 27.7 06/14/21 19:15: APTT 150.8 H* 06/15/21 05:46: WBC 8.4, RBC 5.74, Hgb 14.4, Hct 45.0, MCV 78.4 L, MCH 25.1 L, MCHC 32.0, Plt Count 351, MPV 9.4, Immature Gran % (Auto) 0.400, Neut % (Auto) 74.2 H, Lymph % (Auto) 14.6 L, [place] % (Auto) 8.3, Eos % (Auto) 2.0, Baso % (Auto) 0.5, Absolute Neuts (auto) 6.3, Nucleated RBC % 0 06/15/21 05:46: Sodium 137, Potassium 4.2, Chloride 104, Carbon Dioxide 25.0, Anion Gap 8, BUN 13, Creatinine 0.95, Est GFR (MDRD) Af Amer 112, Est GFR (MDRD) Non-Af 93, BUN/Creatinine Ratio 13.7, Glucose 79, Calcium 9.1, Total Bilirubin 0.60, Triglycerides 71, Cholesterol 163, LDL Cholesterol 100, VLDL Cholesterol 14, HDL Cholesterol 49 Rhythm: Sinus rhythm/sinus tachycardia EKG: Sinus rhythm; no acute ECG changes Radiography Diagnostic Testing: Radiology Impression Chest X-Ray 06/14/21 11:56 IMPRESSION: Normal x-ray examination of the chest. Electronically Signed: Girma Clayton MD at 12:29 EST , Service support , Echocardiogram 06/14/21 13:57 Interpretation Summary The study was technically difficult. Left ventricular systolic function is normal. The estimated ejection fraction is 55 %. Trivial mitral valve insufficiency. Trivial tricuspid valve insufficiency. Trivial eccentric aortic valve insufficiency. Right ventricular systolic pressure estimated to be 23 mmHg. No evidence for diastolic dysfunction. Ordering Physician: Deepak Barrett Referring Physician: KWAME SORIANO Performed By: Oralia Mcneal RDCS Physical Exam Const alert, oriented x3, no apparent distress and healthy appearing Orientation / Consciousness: awake HEENT normocephalic, head/scalp atraumatic and hearing grossly normal bilaterally Eyes PERRL, EOMs intact bilaterally and conjunctivae normal Neck full ROM, supple and no JVD Resp clear to auscultation bilaterally Cardio regular rate, regular rhythm, S1 normal heart sound and S2 normal heart sound GI normal to inspection, nondistended, normoactive bowel sounds Extremity no pedal edema Skin no rashes or lesions noted Neuro oriented x3, moves all extremities, no focal motor deficits and no sensory deficits noted Psych mental status grossly normal Assessment & Plan Assessment/Plan (1) Non-ST elevated myocardial infarction (non-STEMI): PLAN: The patient has cardiovascular risk factors. He presents with symptoms concerning for unstable angina pectoris/an acute coronary syndrome. His cardiac enzymes are elevated. His ECG has not demonstrated any acute ECG changes. His echocardiogram is as noted. At the moment without other obvious etiologies to explain his symptoms or cardiac enzyme findings the concern is that he has experienced an acute non-ST segment elevation [place]. He will continue to be followed with his medications being adjusted as deemed appropriate. He has been recommended for further evaluation with diagnostic cardiac cathet erization. The procedure and risk were discussed with him. He is agreeable to this approach. (2) Diabetes: QUALIFIERS: Diabetes mellitus type: type 1 Diabetes mellitus complication status: with hyperglycemia Qualified Code(s): E10.65 - Type 1 diabetes mellitus with hyperglycemia PLAN: He will continue evaluation care per internal medicine. (3) HTN (hypertension): PLAN: His blood pressure was noted to be elevated. This will need to be followed. He may need further medication adjustment. Addt'l Comments This note was generated using a voice recognition system and there may be incorrect words, spelling or punctuation that were not noted when reviewing the office note prior to saving. Procedure Criteria Type of Procedure Procedure Type: Elective Elective Risks - COVID COVID Risk Discussion: The surgeon/proceduralist and patient have discussed in detail the risk of exposure to and/or potential harm posed by the COVID-19 virus with having a surgery/procedure at this time versus the risk of delaying the surgery/procedure. It is not possible to know either the risk of delaying the surgery or procedure or chance of getting an infection with perfect accuracy, but a joint decision was made between the patient and the surgeon/proceduralist to proceed at this time with the scheduled surgery/procedure as indicated on the consent form.
--- NOTE | 2021-06-15 08:49 | NURSING ---
Report called to [facility].
--- NOTE | 2021-06-15 10:29 | PCI.CARDCATH ---
PCI Cardiac Cath Report PCI Report: Procedure performed; 1. Successful PCI of diffuse mid LAD stenosis with a predilatation using 2 x 20 mm balloon Followed by placement of a drug-eluting stent 2.75 x 2 6 mm/Orsiro With reduction of stenosis from 70 to 0% and maintenance of RUBEN-3 flow preprocedure and post procedure RUBEN III 2. Placement of Perclose to close the right common femoral artery arteriotomy site 3. Placement of TR band to maintain hemostasis of the right radial artery arteriotomy site Consent; Risk and benefit of the procedure explained detail to the patient elected to proceed informed consent obtained. Preprocedure diagnosis 40-year-old patient with history of type 1 diabetes mellitus has been on insulin pump with titration History of hypertension presented with symptoms of chest pain with a clinical diagnosis of non-ST elevation TN Based on the clinical presentation underwent cardiac catheterization today by his primary medical records director Dr. Barrett and showed left main normal angiographically no significant obstructive atherosclerosis noted in the dominant large RCA or the left circumflex Diffuse atherosclerosis of the mid LAD which is intermediate lesion between the 2 diagonal branches he was treated with the dual antiplatelet Brilinta and aspirin and based on the clinical presentation we will proceed with PCI of the culprit The echocardiographic evaluation LV systolic function is preserved ejection fraction 55, trivial mitral, and tricuspid valve regurgitation with normal RV systolic pressure of around 23 mmHg and no evidence of pericardial effusion. Interventional equipment used; 1. 6 Maori 3.5 EBU guide catheter 2. 0.014 run-through extra floppy 180 cm straight guidewire 3. 2 x 20 mm emerge/MR balloon #4 2.75 x 26 mm drug-eluting stent/Orsiro Medication in the Piano Assembler; Patient was given heparin 6000 with acceptable ACT level Multiple doses of intracoronary/IC nitro glycerin around 200 mcg were given. Patient was comfortable during the procedure was well sedated and no symptoms of chest pain. Procedure in detail; Proceed with the access under fluoroscopic guidance from the right common femoral artery with a 6 Maori sheath placed in the right common femoral artery proceed with the guide catheter 6 Maori 3.5 EBU guide catheter advanced ascending aorta cannulated the left main coronary artery without difficulty, multiple views of the left coronary system were obtained, DIVEHI and RUFFIN cranial And then will proceed with the guidewire across the lesion in the diffuse mid LAD then followed by predilatation and placement of drug-eluting stent as a specified There was a spasm in the proximal portion of the stent and we gave 200 mcg of intracoronary nitroglycerin which relieved the spasm and patient had no symptoms of chest pain there were no change in the hall monitor and hemodynamically remained stable Following this selective right common femoral artery angiography obtain and a Perclose used to close the right common femoral artery arteriotomy site in the meantime TR band applied to right radial artery sheath The reason we elected to use the right common femoral artery in this case is due to severe spasm involving the radial artery very uncomfortable to the patient with severe pain with manipulation of the guide. Recommendation; 1. To continue on DAPT Brilinta/low-dose aspirin for 1 year 2. We will start the patient on phase 1 cardiac rehab program/[facility] 3. Patient will follow up with his primary medical records director Dr. Barrett for continuation of cardiac care plan. Adelaida Justice MD,FACC,[facility]
--- NOTE | 2021-06-15 10:30 | EKG12_ITS ---
Test Reason : PCI Blood Pressure : / mmHG Vent. Rate : 083 BPM Atrial Rate : 083 BPM P-R Int : 146 ms QRS Dur : 082 ms QT Int : 370 ms P-R-T Axes : 038 008 035 degrees QTc Int : 434 ms Normal sinus rhythm Poor R wave progression Confirmed by ZOILA SANDHU, LUCINA ([id number]), book or script editor ENRIQUE RICK ([id number]) on 06/16/2021 7:52:31 AM Referred By: NEWTON Confirmed By:LUCINA CUMMINGS MD
--- NOTE | 2021-06-15 10:42 | NURSING ---
Read and reviewed SN documentation
--- NOTE | 2021-06-15 10:43 | PN.HOSP_ITS ---
Documented by User: Franck BUCKNER 06/15/21 11:16 Subjective Subjective Patient is a 41-year-old male comfortably resting in bed, alert and orient x3. Patient reports that he is recovering with after catheterization and denies development of any new complaints overnight. Does not appear in acute distress. Objective Data Objective Data Vital Signs: Vital Signs Temp Pulse Resp BP Pulse Ox 98.4 F 92 16 151/135 H 100 06/15/21 08:00 06/15/21 10:39 06/15/21 10:39 06/15/21 10:39 06/15/21 10:39 Oxygen Delivery Method Room Air Weight: 210 lb 12.191 oz Body Mass Index (BMI) 33.0 Intake & Output: Intake and Output for Last 24 Hours 06/13/21 06/14/21 06/15/21 23:59 23:59 23:59 Intake Total 347.1 / 347.1 153.17 / 153.17 Output Total 150 / 150 Balance 347.1 / 347.1 3.17 / 3.17 Lab / Micro Data Result Diagrams: 06/15/21 05:46 06/15/21 05:46 Labs: Laboratory Results - last 24 hr 06/14/21 11:45: WBC 7.2, RBC 5.67, Hgb 14.3, Hct 44.0, MCV 77.6 L, MCH 25.2 L, MCHC 32.5, RDW Std Deviation 38.6, RDW Coeff of Dayana 13.8, Plt Count 335, MPV 9.1, Immature Gran % (Auto) 0.300, Neut % (Auto) 75.2 H, Lymph % (Auto) 15.9 L, Foard % (Auto) 6.5, Eos % (Auto) 1.5, Baso % (Auto) 0.6, Absolute Neuts (auto) 5.4, Absolute Lymphs (auto) 1.15, Nucleated RBC % 0 06/14/21 11:45: D-Dimer Quant (PE/DVT) <= 0.27 06/14/21 11:45: Sodium 140, Potassium 4.1, Chloride 104, Carbon Dioxide 25.0, Anion Gap 11, BUN 14, Creatinine 0.91, Estim Creat Clear Calc 98.87, Est GFR (MDRD) Af Amer 117, Est GFR (MDRD) Non-Af 97, BUN/Creatinine Ratio 15.4, Glucose 82, Calcium 10.0, Troponin I High Sens 785 H* 06/14/21 11:45: PT 12.2, INR 1.0, APTT 27.7 06/14/21 14:02: Troponin I High Sens 1255 H* 06/14/21 17:20: Troponin I High Sens 1355 H* 06/14/21 19:15: APTT 150.8 H* 06/15/21 05:46: WBC 8.4, RBC 5.74, Hgb 14.4, Hct 45.0, MCV 78.4 L, MCH 25.1 L, MCHC 32.0, RDW Std Deviation 39.3, RDW Coeff of Dayana 14.1, Plt Count 351, MPV 9.4, Immature Gran % (Auto) 0.400, Neut % (Auto) 74.2 H, Lymph % (Auto) 14.6 L, Foard % (Auto) 8.3, Eos % (Auto) 2.0, Baso % (Auto) 0.5, Absolute Neuts (auto) 6.3, Absolute Lymphs (auto) 1.23, Nucleated RBC % 0 06/15/21 05:46: Sodium 137, Potassium 4.2, Chloride 104, Carbon Dioxide 25.0, Anion Gap 8, BUN 13, Creatinine 0.95, Estim Creat Clear Calc 94.70, Est GFR (MDRD) Af Amer 112, Est GFR (MDRD) Non-Af 93, BUN/Creatinine Ratio 13.7, Glucose 79, Calcium 9.1, Total Bilirubin 0.60, AST 33, ALT 37, Alkaline Phosphatase 70, Troponin I High Sens 1901 H*, Total Protein 7.9, Albumin 3.8, Globulin 4.1, Albumin/Globulin Ratio 0.9, Triglycerides 71, Cholesterol 163, LDL Cholesterol 100, VLDL Cholesterol 14, HDL Cholesterol 49 Radiography Diagnostic Testing: Radiology Impression Chest X-Ray 06/14/21 11:56 IMPRESSION: Normal x-ray examination of the chest. Electronically Signed: Girma Clayton MD at 12:29 EST , Service support , Echocardiogram 06/14/21 13:57 Interpretation Summary The study was technically difficult. Left ventricular systolic function is normal. The estimated ejection fraction is 55 %. Trivial mitral valve insufficiency. Trivial tricuspid valve insufficiency. Trivial eccentric aortic valve insufficiency. Right ventricular systolic pressure estimated to be 23 mmHg. No evidence for diastolic dysfunction. Ordering Physician: Deepak Barrett Referring Physician: KWAME SORIANO Performed By: Oralia Mcneal RDCS Physical Exam Const alert, oriented x3 and no apparent distress HEENT head/scalp atraumatic and moist oral mucous membranes Head and Scalp: normocephalic Eyes PERRL, EOMs intact bilaterally and conjunctivae normal Neck no lymphadenopathy, supple and no JVD Resp normal respiratory effort, no retractions, no use of accessory muscles and clear to auscultation bilaterally Cardio regular rate, regular rhythm, no murmurs and no JVD Cardio Narrative: Hypertensive currently 151/135. GI normal to inspection, nondistended, normoactive bowel sounds, soft to palpation and non-tender Extremity normal to inspection, full ROM and no clubbing, cyanosis or edema Skin no rashes or lesions noted, no wounds and skin turgor normal Neuro CN's II-XII intact bilaterally Psych affect normal Assessment & Plan Assessment/Plan (1) Chest pain: (2) HTN (hypertension): (3) Non-ST elevated myocardial infarction (non-STEMI): PLAN: Day 1 Discharge planning: Current plan is for patient to discharge home when medically ready. 1) NSTEMI Patient underwent catheterization and successful PCI of the LAD. Plan is to observe overnight and continue dual antiplatelet therapy with Brilinta and low- dose aspirin. Continue Coreg. 2) DM 1 Continue insulin pump. 3) HTN Uncontrolled, initiated on Coreg, will likely need additional agent brought on board at discharge. DVT prophylaxis - Heparin Patient seen by Franck Gupta PA-C, under the supervision of Dr. Winchester. Documented by User: Dr. Kimmie Winchester MD 06/15/21 15:48 Objective Data Lab / Micro Data Result Diagrams: 06/15/21 05:46 06/15/21 05:46 Charges/Coding Addendum Addendum: This patient was seen in conjunction with SITA Puckett. I have independently interviewed and examined the patient and reviewed pertinent historical, laboratory, and other data. Please refer to SITA Puckett's note for his patient's presentation, findings, and recommendations. I have reviewed and his note and concur with his documentation Patient was seen and examined. He underwent cardiac cath and had stent placed in the LAD. Physical Exam: Gen: Comfortable, not pale, not jaundiced CVS:HS I +II, regular, no murmurs RESP: Diminished at lung bases GI: BS present and normal, soft, nontender, no palpable organs EXT:No edema ASSESSMENT: 1. Acute non-STEMI 2. CAD status post stent 3. Hypertension 4. Type I DM Plan: Continue with aspirin, Brilinta, carvedilol Continue with the other post-cath recommendations Continue on insulin pump Visit Charges Inpatient E&M: 41243 [facility] Hosp L2
[2021-06-15] MEDS: 0.9% Normal Saline 1,000 ML 75 ML IV ×2 (10:55→11:34)
--- NOTE | 2021-06-15 11:18 | NURSING ---
Addendum entered by Gisella See 06/15/21 17:10: Pt reports blood glucose 124 on pump. Addendum entered by Gisella See 06/15/21 12:37: BS 238 pt bolused with 3.85 units through personal insulin pump Original Note: Pt checked blood sugar with home equipment and gave self bolus. BS 269, bolus 7.95 units through pump.
--- NOTE | 2021-06-15 11:45 | CASEMGMT ---
RN CM Face to Face with patient for initial transition planning/care coordination assessment. RN CM introduced self and role at [facility]. Patient lying in bed, alert and oriented, at bedside. Patient willing to participate in assessment and is able to answer all questions appropriately. Care providers, pharmacy, and demographics verified. Patient wishes to discharge home, denies need for home health at this time. Patient states he has no further needs or concerns at this time. CM to follow for discharge planning needs that may arise. PCP: Stephanie Specialists: King national sales director Preferred Pharmacy: [facility] retail at discharge Insurance: [place] Prescription Benefit: yes Living Will/HPOA: none LNOK: Living Arrangements: Patient lives with in a 2 story home. Patient states he is independent and able to ambulate stairs. Transportation: self/ DME/HHC: Patient states he has glucometer and testing supplies at home. Denies previous HHC Disposition Plan: Patient to discharge home with family support and follow-up plans in place. Neda RABAGON, RN, CM
--- NOTE | 2021-06-15 13:19 | CRPHASE1 ---
Patient Communication PHII Cardiac Rehab Discussed with Patient:: Yes Guide to Cardiac Rehab Given to Patient:: Yes Cardiac Rehab Facility Choice List Given to Patient:: Yes Choice Program [facility] CR PHII:: Communication Given to CR Choice Program Other:: Communication Given to CR Photoengraving Finisher:: Adelaida Justice Phase II Cardiac Rehab:: Yes Sessions:: 36 sessions - 3 days/wk, 12 weeks Cardiac Rehabilitation Info Cardiac Rehabilitation Program Information: Cardiac Rehabilitation is important for patients like you who are recovering from a heart problem. Cardiac rehabilitation programs are recognized as integral to the continued care of the patient with coronary heart disease. The cardiac rehabilitation program is designed to optimize a patient's physical, psychological, and social functioning. Health campground caretaker work in cardiac rehabilitation programs and assist you with getting the treatments you need to get stronger and healthier - like exercise, healthy eating habits, and medications. Cardiac rehabilitation has been show to help people with heart problems live longer and have better life enjoyment than people who do not go to cardiac rehabilitation. Please contact the Cardiac Rehabilitation Program at [facility] at in two weeks if you have not heard from them.
--- NOTE | 2021-06-15 13:20 | CRPH1.INSTRU ---
General Education CAD and cardiac anatomy and function:: Patient communicates acknowledgment, Family communicates acknowledgment Explanation of diagnoses and procedures:: Patient communicates acknowledgment, Family communicates acknowledgment Sign/Symptoms of MD:: Patient communicates acknowledgment, Family communicates acknowledgment Antiplatelet therapy: Patient communicates acknowledgment, Family communicates acknowledgment Smoking Patient Nicotine/Smoking Risk Factors Are:: Non-smoker Dyslipidemia Patient Dyslipidemia Risk Factors Are:: Total Cholesterol, Triglycerides, HDL, LDL Recommendations Include:: Lipid profile provided, Reviewed NCEP/ATP guidelines, Therapeutic Lifestyle Change dietary guidelines Dyslipidemia Response Code:: Patient communicates acknowledgment, Family communicates acknowledgment Overweight/Obesity Patient Overweight/Obesity Risk Factors Are:: Obesity - > or = 30 Recommendations Include:: Weight loss of 5-10%, Reduced calorie diet, Exercise 5-7 times/week Overweight/Obesity:: Patient communicates acknowledgment, Family communicates acknowledgment Hypertension Patient Hypertension Risk Factors Are:: No documented hx of HTN Heart Disease Patient Heart Disease Risk Factors Are:: Family history of heart disease < 65 years old Recommendations Include:: Educated family members of their risk, Educated family members of importance of prevention of heart disease Heart Disease Response Code:: Patient communicates acknowledgment, Family communicates acknowledgment Diabetes Patient Diabetes Risk Factors Are:: Elevated blood sugars, Post-op hyperglycemia Recommendations Include:: Maintain fasting blood sugars 70-110 md/dL, Maintain HgbA1c of 6% or less, Monitor blood sugar as prescribed, Diabetic dietary guidelines, Decrease/maintain body weight Diabetes:: Patient communicates acknowledgment Sedentary Patient Sedentary Risk Factors Are:: Lack of regular exercise Recommendations Include:: Aerobic exercise 5-7 times/week for 20-30 minutes continuously, Benefits of regular exercise, Discussed home walking program, Monitored Outpatient Cardiac Rehab Sedentary Response Code:: Patient communicates acknowledgment, Family communicates acknowledgment Stress Patient Stress Risk Factors Are:: Patient denies stress as a risk factor
--- NOTE | 2021-06-15 13:36 | NURSING ---
Bedrest completed, pt walked into hallway and assisted back to bed. No bleeding noted from rt femoral site. Both rt femoral and rt radial site remains soft.
[2021-06-15] MEDS: Atorvastatin Calcium 80 MG Tablet PO (20:10)
[2021-06-15] MEDS: Carvedilol 12.5 MG Tablet PO (20:10)
--- NOTE | 2021-06-15 20:11 | NURSING ---
blood sugar was 152 no need for insulin
--- NOTE | 2021-06-15 22:50 | CL.D_ITS ---
Patient Name: MALU TORIBIO Study Date: 06/15/2021 Performing: Deepak Barrett MD Ht: 66.93 inches 170 cm : 1980 Wt: 211.64 lbs 96 kg Age: 40 Gender: male BSA: 2.07 PROCEDURE(S) PERFORMED [id number] W OR WO PTCA, SINGLE CORONARY ARTERY [id number] CLINICAL PROFILE AND INDICATIONS Indications: ACS <= 24 hrs Heart Failure: None Stress/Imaging Stress/Image Study Performed: No Angina Classification Anginal Classification w/in 2 Weeks: CCS III CAD Presentations: Non-STEMI. CONCLUSIONS Elevated Left Ventricular End Diastolic Pressure Normal LV size, wall motion,and systolic function LVEF: by LV gram 60 % Single vessel CAD of the LAD RECOMMENDATIONS Risk factor modification Medical therapy Referred for immediate PCI DESCRIPTION OF PROCEDURE The patient arrived to the procedure lab. The risks and benefits of the procedure as well as a full d escription of our services here and current unavailability of surgical backup were fully explained to the patient and/or their significant other prior to the catheterization. The Timeout was completed, verifying the correct patient and procedure. The patient's procedural site was prepped and draped in the usual fashion. Local anesthetic was given subcutaneously to right radial region with Lidocaine 2% . Local anesthetic was given subcutaneously to right groin region with Lidocaine 2%. Using a modified Seldinger technique, arterial access was obtained via the right radial artery, a 6Fr sheath was inse rted., arterial access was obtained via the right femoral artery, a 6Fr sheath was inserted. Left Co ronary Artery selective angiography was performed in multiple views using a 5 Fr. 4.0 Vermilion catheter. Right Coronary Artery selective angiography was then performed in multiple views using a 5 Fr. JR 4 catheter. Left Ventriculography was performed in RUFFIN projection using a 5 Fr. Pigtail cath eter. LV to AO pullback pressures were then recorded.Contrast was injected through the sheath and the Right Iliac and Femoral artery were assessed for possible closure device.The arterial sheath was pul led and a Perclose closure device was deployed for hemostasis. The arterial sheath was pulled and a T R Band was applied for hemostasis. 9cc of air CORONARY ANGIOGRAPHY DOMINANCE: Right Dominant LEFT HEART ASSESSMENT Left Ventricular Ejection Fraction: by LV Gram 60 % Normal LV wall motion Elevated Left Ventricular End Diastolic Pressure LVEDP: 24 mmHg LEFT ANTERIOR DESCENDING ARTERY: MID LAD: long: diffuse: somewhat hazy: 85 % Stenosis CIRCUMFLEX ARTERY: Angiographically normal RIGHT CORONARY ARTERY: Angiographically normal AORTIC ROOT: Angiographically normal COMPLICATIONS No Complications PROCEDURE MEDICATIONS Fentanyl 50 mcg IV Versed 1 mg IV Fentanyl 50 mcg IV Versed 1 mg IV Fentanyl 50 mcg IV Versed 1 mg IV Oxygen: 2 L/min via nasal cannula Baby Aspirin (81mg) 1 Tabs PO @ 06/15/2021 08:52:35 Heparin given IA 06/15/2021 09:09:55 Heparin 6000 unit(s) IV 06/15/2021 09:40:59 Nitro 200 mcg IA 06/15/2021 09:43:30 Nitro 200 mcg IC 06/15/2021 10:03:35 Verapamil 2.5mg, Ntg 100mcgs, 3000 units of Heparin given IA 06/15/2021 09:09:55 SUMMARY OF HEMODYNAMIC DATA Time AIR REST ECG 08:50:44 Art 159/80 (108) 09:07:15 AO 105/75 (90) SA 09:13:34 LV 129/1, 24 09:27:11 LV 162/-8, 24 09:27:18 LV 131/3, 25 09:28:10 LVp 140/1, 21 09:28:16 AOp 128/78 (101) 09:28:21 AO 117/79 (96) 09:52:45 Signed By Deepak Barrett MD On 06/15/2021 1:14:56 PM Deepak Barrett MD
[2021-06-16 03:00] VITALS: PULSE 67
[2021-06-16 03:46] VITALS: BP 112/73; PULSE 84; RESP 18; TEMP 36.6; O2SAT 98
[2021-06-16 06:21] LABS: Hematocrit 40.6 % (40-54); Hemoglobin 13.1 g/dL (13.0-16.5); Mean Corp Hgb Conc 32.3 g/dL (32-36); Mean Corpuscular Hgb 25.8 pg (27.0-32.0); Mean Corpuscular Volume 80.1 fL (80-94); Mean Platelet Vol. 9.5 fl (6.2-12.0); Platelet Count 293 K/mm3 (150-450); RBC Distribution Width CV 14.3 % (11.6-14.6); Red Blood Count 5.07 M/mm3 (4.6-6.2); White Blood Count 9.8 K/mm3 (4.4-11.0)
--- NOTE | 2021-06-16 06:24 | NURSING ---
pt blood sugar now was 137 this am and no need for insulin.
[2021-06-16 06:52] LABS: ALB/GLOB Ratio 0.8 RATIO (0.9-2.4); AST(SGOT) 21 U/L (15-37); Alanine Aminotransfer ALT/SGPT 28 U/L (16-61); Albumin, Serum 3.2 g/dL (3.2-5.0); Alkaline Phosphatase 63 U/L (45-117); Anion Gap 6 (5-15); BUN 13 mg/dL (7-18); BUN/Creat Ratio 16.2 RATIO (10-20); Calcium,Total 8.8 mg/dL (8.5-10.1); Chloride 109 mmol/L (98-107); EST Glomerular Filtration Rate 112 mL/min (>60); Est Glom Filt Rate - Afr Amer 135 mL/min (>60); Estimated Creatinine Clearance 112.46 ml/min; Globulin 3.8 g/dL (2.2-4.2); Glucose 126 mg/dL (74-106); Sodium Level 139 mmol/L (136-145)
[2021-06-16 07:35] VITALS: PULSE 85
[2021-06-16 08:09] VITALS: O2SAT 97
--- NOTE | 2021-06-16 08:22 | PCM.PN.CARD ---
Subjective Subjective The patient is now status post diagnostic cardiac catheterization and subsequent LAD PCI/JONO. He states he feels better. He has been up and ambulating in his room. He has not had any recurrent chest discomfort. Objective Data Vital Signs: Vital Signs Temp Pulse Resp BP Pulse Ox 97.9 F 84 18 112/73 97 06/16/21 03:46 06/16/21 03:46 06/16/21 03:46 06/16/21 03:46 06/16/21 08:09 Oxygen Delivery Method Room Air Weight: 210 lb 1.608 oz Body Mass Index (BMI) 33.0 Intake & Output: Intake and Output for Last 24 Hours 06/14/21 06/15/21 06/16/21 23:59 23:59 23:59 Intake Total 347.1 / 347.1 600.67 / 600.67 991.25 / 991.25 Output Total 950 / 950 600 / 600 Balance 347.1 / 347.1 -349.33 / -349.33 391.25 / 391.25 Lab / Micro Data Result Diagrams: 06/16/21 05:45 06/16/21 05:45 Labs: Laboratory Results - last 24 hr 06/16/21 05:45: WBC 9.8, RBC 5.07, Hgb 13.1, Hct 40.6, MCV 80.1, MCH 25.8 L, MCHC 32.3, RDW Std Deviation 41.0, RDW Coeff of Dayana 14.3, Plt Count 293, MPV 9.5 06/16/21 05:45: Sodium 139, Potassium 4.0, Chloride 109 H, Carbon Dioxide 24.0, Anion Gap 6, BUN 13, Creatinine 0.80, Estim Creat Clear Calc 112.46, Est GFR (MDRD) Af Amer 135, Est GFR (MDRD) Non-Af 112, BUN/Creatinine Ratio 16.2, Glucose 126 H, Calcium 8.8, Total Bilirubin 0.60, AST 21, ALT 28, Alkaline Phosphatase 63, Total Protein 7.0, Albumin 3.2, Globulin 3.8, Albumin/Globulin Ratio 0.8 L Cardiology Labs/Tests 06/16/21 05:45: WBC 9.8, RBC 5.07, Hgb 13.1, Hct 40.6, MCV 80.1, MCH 25.8 L, MCHC 32.3, Plt Count 293, MPV 9.5 06/16/21 05:45: Sodium 139, Potassium 4.0, Chloride 109 H, Carbon Dioxide 24.0, Anion Gap 6, BUN 13, Creatinine 0.80, Est GFR (MDRD) Af Amer 135, Est GFR (MDRD) Non-Af 112, BUN/Creatinine Ratio 16.2, Glucose 126 H, Calcium 8.8, Total Bilirubin 0.60 Rhythm: Sinus rhythm EKG: Sinus rhythm; no acute ECG changes Physical Exam Const alert, oriented x3, no apparent distress and healthy appearing Orientation / Consciousness: awake HEENT normocephalic, head/scalp atraumatic and hearing grossly normal bilaterally Eyes PERRL, EOMs intact bilaterally and conjunctivae normal Neck full ROM, supple and no JVD Resp clear to auscultation bilaterally Cardio regular rate, regular rhythm, S1 normal heart sound and S2 normal heart sound GI normal to inspection, nondistended, normoactive bowel sounds Extremity no pedal edema Peripheral Pulses: Yes radial pulses present right (No obvious bruits: No obvious hematoma) 2+ and femoral pulses present right (No obvious bruits: No obvious hematoma) 2+ Skin no rashes or lesions noted Neuro oriented x3, moves all extremities, no focal motor deficits and no sensory deficits noted Psych mental status grossly normal Assessment & Plan Assessment/Plan (1) Non-ST elevated myocardial infarction (non-STEMI): PLAN: The patient has cardiovascular risk factors. He presents with symptoms concerning for unstable angina pectoris/an acute coronary syndrome. His cardiac enzymes are elevated. His ECG has not demonstrated any acute ECG changes. His echocardiogram is as noted. He has undergone further evaluation with diagnostic cardiac catheterization. This led to LAD PCI. He appears to be symptomatically improved at this time. He will continue medical therapy. He will be enrolled in outpatient cardiac rehabilitation therapy. He will be asked to have future outpatient cardiovascular follow-up. (2) Diabetes: QUALIFIERS: Diabetes mellitus type: type 1 Diabetes mellitus complication status: with hyperglycemia Qualified Code(s): E10.65 - Type 1 diabetes mellitus with hyperglycemia PLAN: He will continue evaluation care per internal medicine. (3) HTN (hypertension): PLAN: His blood pressure was noted to be elevated. This will need to be followed. He may need further medication adjustment. Addt'l Comments This note was generated using a voice recognition system and there may be incorrect words, spelling or punctuation that were not noted when reviewing the office note prior to saving.
--- NOTE | 2021-06-16 08:52 | PCM.DC ---
Discharge Instructions Diet Discharge Diet: No restrictions Activity Discharge Activity: Return to Normal Activity Weight Bearing Status: Weight bearing as tolerated Dressing / Incision Call your doctor if you observe: Fever of 101 or Higher, Numbness or Tingling, Shortness of breath, Dizziness, Chest pain, Increased palpitations (irregular heartbeat) and Calf discomfort Follow Up Care Please Follow Up With: Primary care provider When: Within the next two weeks. Test Results: Test results from this visit will be discussed in further detail at your follow-up appointment, if applicable. Discharge Plan Admission Admit Date/Time: 06/14/21 12:42 Primary Reason for Your Visit: Chest pain Attending Provider: Kimmie Winchester Primary Care Provider: Patty Pettit Consulting Providers: Deepak Barrett Discharge Orders/Prescriptions Prescriptions: New Brilinta 90 mg tablet 90 mg PO BID Qty: 60 RF: 0 aspirin 81 mg tablet,delayed release (DR/EC) 81 mg PO DAILY Qty: 30 RF: 0 atorvastatin [Lipitor] 80 mg tablet 80 mg PO QHS Qty: 30 RF: 0 carvedilol [Coreg] 12.5 mg tablet 12.5 mg PO BID Qty: 60 RF: 0 Continued (DME) insulin syringe-needle U-100 1 mL 31 gauge x 5/16 1 mL 31 gauge x 5/16 syringe See Dose Instructions .ROUTE .MEDSUPPLY Qty: 10 RF: 0 (DME) OneTouch Ultra Blue Test Strip strip See Dose Instructions .ROUTE .MEDSUPPLY Qty: 10 RF: 0 famotidine 20 mg tablet 20 mg PO BID RF: 0 (DME) Dexcom G6 Transmitter Device See Rx Instructions .ROUTE .MEDSUPPLY Qty: 1 RF: 1 cetirizine [Zyrtec] 10 mg Tablet 10 mg PO DAILY RF: 0 Humalog U-100 Insulin 100 unit/mL solution See Rx Instructions SC .COMPLEX Qty: 90 RF: 2 (DME) Dexcom G6 Sensor Device See Rx Instructions .ROUTE .MEDSUPPLY Qty: 9 RF: 3 Referrals / Follow Up: Patty Pettit MD [Primary Care Provider] - Within 2 Weeks Deepak Barrett MD [STAFF PHYSICIAN] - Within 2 Weeks Disposition Disposition (needs filled in before D/C Order can be placed): Home, Self Care
--- NOTE | 2021-06-16 10:00 | EKG12_ITS ---
Test Reason : NSTEMI Blood Pressure : / mmHG Vent. Rate : 076 BPM Atrial Rate : 076 BPM P-R Int : 132 ms QRS Dur : 080 ms QT Int : 376 ms P-R-T Axes : 001 026 050 degrees QTc Int : 423 ms Normal sinus rhythm Normal ECG When compared with ECG of 15-JUN-2021 11:05, MANUAL COMPARISON REQUIRED, DATA IS UNCONFIRMED Confirmed by CABRERA SANDHU, CAMILLE ([id number]), staff editor ENRIQUE RICK ([id number]) on 06/16/2021 11:45:24 AM Referred By: Confirmed By:CAMILLE REES MD
[2021-06-16] MEDS: TICAGRELOR 90 MG TABLET PO (10:41)
[2021-06-16] MEDS: Carvedilol 12.5 MG Tablet PO (10:45)
[2021-06-16] MEDS: Aspirin E.C. 81 MG Tablet PO (10:46)
[2021-06-16 10:50] VITALS: BP 113/80; PULSE 80; PULSE 90; RESP 16; TEMP 36.3; O2SAT 98
--- NOTE | 2021-06-16 11:23 | CASEMGMT ---
Pt to be sent home on Brilinta and per Jatinder in [facility] pharmacy, pt is covered at 100%. Bret CRUZ CM
--- NOTE | 2021-06-16 11:52 | PHA.DC.MR ---
Pharmacy Service has performed discharge medication reconciliation for this patient. The patient's discharge medication list was reviewed for discrepancies and discrepancies were resolved. Medication education papers prepared, patient discharged before I was able to newspaper delivery counselor. This [facility] spoke with SITA Juárez to see if patient should be initiated on ROSITA inhibitor following stent placement. He got back to me saying the carvedilol made patient's BP a little low and Dr. Barrett may look into this on an outpatient basis. Medications reviewed. Home Medications blood sugar diagnostic #10 ea 06/18/18 insulin syringe-needle U-100 1 mL 31 gauge x 11/20 #10 ea 06/18/18 blood-glucose transmitter #1 ea 09/01/20 famotidine 20 mg tablet 20 mg PO BID 09/01/20 Humalog U-100 Insulin 100 unit/mL subcutaneous solution See Rx Instructions SC .COMPLEX #90 ml NS 11/28/20 Dexcom G6 Sensor #9 ea NS 12/08/20 cetirizine [Zyrtec] 10 mg PO DAILY 06/14/21 aspirin 81 mg PO DAILY #30 tab 06/16/21 atorvastatin [Lipitor] 80 mg PO QHS #30 tab 06/16/21 carvedilol [Coreg] 12.5 mg PO BID #60 tab 06/16/21 ticagrelor [Brilinta] 90 mg PO BID #60 tab 06/16/21
--- NOTE | 2021-06-16 12:15 | DS.PCM_ITS ---
Documented by User: Franck BUCKNER 06/16/21 12:31 Providers Date of Admission: 06/14/21 Primary Care Physician: Dr. Patty Pettit MD Consultations 06/14/21 13:45 Consult: Cardiology Routine Consulting Provider: Deepak Barrett Reason for Consult: Acute NSTEMI EMERGENT Consult: No MD Notified: Yes Date Notified: 06/14/21 Time Notified: 12:45 Method of Notification: Text Reason For Visit: ACUTE NSTEMI Diagnosis Discharge Diagnosis (1) Non-ST elevated myocardial infarction (non-STEMI): Status: Acute Code(s): I21.4 - Non-ST elevation (NSTEMI) myocardial infarction (2) Diabetes: Status: Chronic Code(s): E11.9 - Type 2 diabetes mellitus without complications Qualifiers: Diabetes mellitus complication status: with hyperglycemia Diabetes mellitus type: type 1 Qualified Code(s): E10.65 - Type 1 diabetes mellitus with hyperglycemia (3) HTN (hypertension): Status: Chronic Code(s): I10 - Essential (primary) hypertension Medications at Discharge Home Medications blood sugar diagnostic #10 ea 06/18/18 insulin syringe-needle U-100 1 mL 31 gauge x 16 #10 ea 06/18/18 blood-glucose transmitter #1 ea 09/01/20 famotidine 20 mg tablet 20 mg PO BID 09/01/20 Humalog U-100 Insulin 100 unit/mL subcutaneous solution See Rx Instructions SC .COMPLEX #90 ml NS 11/28/20 Dexcom G6 Sensor #9 ea NS 12/08/20 cetirizine [Zyrtec] 10 mg PO DAILY 06/14/21 aspirin 81 mg PO DAILY #30 tab 06/16/21 atorvastatin [Lipitor] 80 mg PO QHS #30 tab 06/16/21 carvedilol [Coreg] 12.5 mg PO BID #60 tab 06/16/21 ticagrelor [Brilinta] 90 mg PO BID #60 tab 06/16/21 Hospital Course Procedures 2-D Echocardiogram, Cardiac catheterization and Thoracentesis Summary of Care Provided Minutes Spent on Discharge: 35 Hospital Course: Patient is a 40-year-old male who was admitted to [facility] on 06/14/2021 for management and evaluation of NSTEMI. Patient was evaluated by cardiology who recommended that patient undergo cardiac catheterization which revealed single-vessel coronary artery disease of the LAD, which immediately was addressed with stenting and angioplasty. Patient also underwent echocardiogram which revealed normal LV systolic function, an estimated EF of 55%, and RVSP of 23 mmHg with no evidence of diastolic dysfunction. Recommendation for cardiology were to pursue risk factor modification through medical management. Patient was initiated on aspirin, statin, Coreg and ticagrelor at discharge. All other home medications were continued. Patient is to follow-up with primary care provider and cardiology within the next 2 weeks. Patient seen by Franck Gupta PA-C, under the supervision of Dr. Winchester. Physical Exam Narrative Patient is a 40-year-old male comfortably resting in bed, alert and orient x3. Patient reports resolution of his chest pain for admission and denies any furth er complaints. Denies development of any new symptoms overnight. Does not appear in acute distress. Const alert, oriented x3 and no apparent distress HEENT normocephalic, head/scalp atraumatic and hearing grossly normal bilaterally Eyes PERRL, EOMs intact bilaterally and conjunctivae normal Neck no lymphadenopathy, supple and no JVD Resp normal respiratory effort, no retractions, no use of accessory muscles and clear to auscultation bilaterally Cardio regular rate, regular rhythm, no murmurs and no JVD GI normal to inspection, nondistended, normoactive bowel sounds, soft to palpation and non-tender Extremity normal to inspection, full ROM and no clubbing, cyanosis or edema Skin no rashes or lesions noted, no wounds and skin turgor normal Neuro CN's II-XII intact bilaterally Psych affect normal Weight / BMI Weight Weight: 210 lb 1.608 oz Body Mass Index (BMI) 33.0 ABG / Lab / Microbiology Data Result Diagrams: 06/16/21 05:45 06/16/21 05:45 Laboratory: Laboratory Results - last 24 hr 06/16/21 05:45: WBC 9.8, RBC 5.07, Hgb 13.1, Hct 40.6, MCV 80.1, MCH 25.8 L, MCHC 32.3, RDW Std Deviation 41.0, RDW Coeff of Dayana 14.3, Plt Count 293, MPV 9.5 06/16/21 05:45: Sodium 139, Potassium 4.0, Chloride 109 H, Carbon Dioxide 24.0, Anion Gap 6, BUN 13, Creatinine 0.80, Estim Creat Clear Calc 112.46, Est GFR (MDRD) Af Amer 135, Est GFR (MDRD) Non-Af 112, BUN/Creatinine Ratio 16.2, Glucose 126 H, Calcium 8.8, Total Bilirubin 0.60, AST 21, ALT 28, Alkaline Phosphatase 63, Total Protein 7.0, Albumin 3.2, Globulin 3.8, Albumin/Globulin Ratio 0.8 L D/C Instructions Discharge Diet: No restrictions Weight Bearing Status: Weight bearing as tolerated Call your doctor if you observe: Fever of 101 or Higher, Numbness or Tingling, Shortness of breath, Dizziness, Chest pain, Increased palpitations (irregular heartbeat) and Calf discomfort Please Follow Up With: Primary care provider When: Within the next two weeks. Meaningful Use Info Meaningful Use Diagnoses (Choose all that apply): None applicable Discharge Plan Admission Admit Date/Time: 06/14/21 12:42 Primary Reason for Your Visit: Chest pain Attending Provider: Kimmie Winchester Primary Care Provider: Patty Pettit Consulting Providers: Deepak Barrett Discharge Orders/Prescriptions Prescriptions: New Brilinta 90 mg tablet 90 mg PO BID Qty: 60 RF: 0 aspirin 81 mg tablet,delayed release (DR/EC) 81 mg PO DAILY Qty: 30 RF: 0 atorvastatin [Lipitor] 80 mg tablet 80 mg PO QHS Qty: 30 RF: 0 carvedilol [Coreg] 12.5 mg tablet 12.5 mg PO BID Qty: 60 RF: 0 Continued (DME) insulin syringe-needle U-100 1 mL 31 gauge x 5/16 1 mL 31 gauge x 5/16 syringe See Dose Instructions .ROUTE .MEDSUPPLY Qty: 10 RF: 0 (DME) OneTouch Ultra Blue Test Strip strip See Dose Instructions .ROUTE .MEDSUPPLY Qty: 10 RF: 0 famotidine 20 mg tablet 20 mg PO BID RF: 0 (DME) Dexcom G6 Transmitter Device See Rx Instructions .ROUTE .MEDSUPPLY Qty: 1 RF: 1 cetirizine [Zyrtec] 10 mg Tablet 10 mg PO DAILY RF: 0 Humalog U-100 Insulin 100 unit/mL solution See Rx Instructions SC .COMPLEX Qty: 90 RF: 2 (DME) Dexcom G6 Sensor Device See Rx Instructions .ROUTE .MEDSUPPLY Qty: 9 RF: 3 Referrals / Follow Up: Patty Pettit MD [Primary Care Provider] - Within 2 Weeks Deepak Barrett MD [STAFF PHYSICIAN] - Within 2 Weeks Disposition Disposition (needs filled in before D/C Order can be placed): Home, Self Care Documented by User: Dr. Kimmie Winchester MD 06/16/21 14:33 Providers Date of Admission: 06/14/21 Reason For Visit: ACUTE NSTEMI Medications at Discharge Home Medications blood sugar diagnostic #10 ea 06/18/18 insulin syringe-needle U-100 1 mL 31 gauge x 5/16 #10 ea 06/18/18 blood-glucose transmitter #1 ea 09/01/20 famotidine 20 mg tablet 20 mg PO BID 09/01/20 Humalog U-100 Insulin 100 unit/mL subcutaneous solution See Rx Instructions SC .COMPLEX #90 ml NS 11/28/20 Dexcom G6 Sensor #9 ea NS 12/08/20 cetirizine [Zyrtec] 10 mg PO DAILY 06/14/21 aspirin 81 mg PO DAILY #30 tab 06/16/21 atorvastatin [Lipitor] 80 mg PO QHS #30 tab 06/16/21 carvedilol [Coreg] 12.5 mg PO BID #60 tab 06/16/21 ticagrelor [Brilinta] 90 mg PO BID #60 tab 06/16/21 ABG / Lab / Microbiology Data Result Diagrams: 06/16/21 05:45 06/16/21 05:45 Discharge Plan Admission Admit Date/Time: 06/14/21 12:42 Primary Reason for Your Visit: Chest pain Attending Provider: Kimmie Winchester Primary Care Provider: Patty Pettit Consulting Providers: Deepak Barrett Discharge Orders/Prescriptions Prescriptions: New Brilinta 90 mg tablet 90 mg PO BID Qty: 60 RF: 0 aspirin 81 mg tablet,delayed release (DR/EC) 81 mg PO DAILY Qty: 30 RF: 0 atorvastatin [Lipitor] 80 mg tablet 80 mg PO QHS Qty: 30 RF: 0 carvedilol [Coreg] 12.5 mg tablet 12.5 mg PO BID Qty: 60 RF: 0 Continued (DME) insulin syringe-needle U-100 1 mL 31 gauge x 5/16 1 mL 31 gauge x 5/16 syringe See Dose Instructions .ROUTE .MEDSUPPLY Qty: 10 RF: 0 (DME) OneTouch Ultra Blue Test Strip strip See Dose Instructions .ROUTE .MEDSUPPLY Qty: 10 RF: 0 famotidine 20 mg tablet 20 mg PO BID RF: 0 (DME) Dexcom G6 Transmitter Device See Rx Instructions .ROUTE .MEDSUPPLY Qty: 1 RF: 1 cetirizine [Zyrtec] 10 mg Tablet 10 mg PO DAILY RF: 0 Humalog U-100 Insulin 100 unit/mL solution See Rx Instructions SC .COMPLEX Qty: 90 RF: 2 (DME) Dexcom G6 Sensor Device See Rx Instructions .ROUTE .MEDSUPPLY Qty: 9 RF: 3 Referrals / Follow Up: Patty Pettit MD [Primary Care Provider] - Within 2 Weeks Deepak Barrett MD [STAFF PHYSICIAN] - Within 2 Weeks Disposition Disposition (needs filled in before D/C Order can be placed): Home, Self Care Charges/Coding Addendum Addendum: This patient was seen in conjunction with SITA Puckett. I have independently interviewed and examined the patient and reviewed pertinent historical, laboratory, and other data. Please refer to SITA Puckett's note for his patient's presentation, findings, and recommendations. I have reviewed and his note and concur with his documentation 40-year-old male with past medical history of type I DM on insulin pump who comes in with complaints of chest pain ongoing for about 3 days. Patient was found to have elevated troponin and admitted to PCU and managed as acute non- STEMI. Cardiology was consulted. He underwent cardiac catheterization and had PCI with drug-eluting stent to the LAD. Patient was seen and examined. He felt improved. Denies any fever or chills Physical Exam: Gen: Comfortable, not pale, not jaundiced CVS:HS I +II, regular, no murmurs RESP: Diminished at lung bases GI: BS present and normal, soft, nontender, no palpable organs EXT:No edema Visit Charges Inpatient E&M: 14574 Disch Hosp
== END 2021-06-16 11:41 | disposition home or self-care (01) | DRG 247 ==
LOC: ED 13:10 → PCU 06-15 09:15
PROVIDERS: Internal Medicine Interventional Cardiology; Admitting Provider Internal Medicine; Emergency Provider Emergency Medicine; PCP Family Medicine; Visit Provider Internal Medicine
DX: I21.4 Non-ST elevation (NSTEMI) myocardial infarction (principal); I25.10 Atherosclerotic heart disease of native coronary artery without angina pectoris; E10.65 Type 1 diabetes mellitus with hyperglycemia; I10 Essential (primary) hypertension; K21.9 Gastro-esophageal reflux disease without esophagitis; Z79.4 Long term (current) use of insulin; Z79.899 Other long term (current) drug therapy; Z96.41 Presence of insulin pump (external) (internal)
CPT/HCPCS: 36415; 71045; 80048; 80053; 80061; 84484; 85025; 85027; 85379; 85610; 85730; 92928; 93005; 93306; 93458; 97802; 99152; 99153; 99285; C1874; J7030; 90686; A4216; C1725; C1760; C1769; C1887; C1894; C9600; Q9967

== ENCOUNTER 2021-07-12 13:53 | Outpatient (CLI) | payer BC, SELFPAY ==
--- NOTE | 2021-07-12 14:03 | CR.ITP_ITS ---
Diagnosis - General Information Admitting Diagnosis: NSTEMI, PCI with coronary stent Personal Learning Style:: Audio/Visual Barriers to Learning: Vision Impairment Gave educational material for:: Treating Heart Disease, Emotions & Heart Disease, Stress Management & Relaxation, Sleep Disorders & Heart Disease, How The Heart Works, What it means to have Heart Disease, How Coronary Artery Disease is Diagnosed, Heart Procedures, What Heart Medications Do, Risk Factors & Modifications, Living an Active Life, Nutrition - Education/Goals Individual Counseling: Initial Assessment: Diabetes Cardiac Rehabilitation Goals: 1. Maintain the individual as the primary focus of care. 2. To improve the patient's quality of life. 3. Identification of cardiac risk factors and provide cardiac risk factor management. 4. Enhance the psychosocial status of the patient. 5. Reconditioning enough to allow the patient to resume customary activities. 6. Control symptoms of cardiac disease Personal Goals: Initial Assessment: Improve energy level, Improve knowledge of cardiac disease, Improve diet and eating habits (eat healthier), Control risk factors (learn risk factor modification) Scale for measuring improvement of personal goals: Enter appropriate number in Comments. 2 = Unchanged. 3 = Slightly Better. 4 = Moderate Improvement. 5 = Met my Goal - Diagnosis & Disease Process Outcomes/Goals: Pt IDs own risk factors & lifestyle modifications by Session 10, Verbalizes symptoms of angina & response by session 3., Pt independently manages, Other Additional Outcomes/Goals: Plan/Interventions: Assist Pt to ID & engage in lifestyle modification to reduce CVD risk, Instruct on individual risk factors, Review symptoms of angina & emergency actions, Review secondary diagnosis & identify educational needs., Other see comment 30 day Reassessments:: Not Met 30 day Reassessments:: Not Met 30 day Reassessments:: Not Met 30 day Reassessments:: Not Met Final Reassessments:: Not Met - Safety Referral to Physical Therapy: No Referral to [facility] Case Management: No Fall Risk Assessed:: Yes Assistive Devices:: None Exercise - Initial Assessment - Visit Date of Eval: 07/12/21 - initial eval Mets: Pre-: >3 METS for 30 minutes by discharge, >5 METS for 30 minutes by discharge, >7 METS for 30 minutes by discharge, Unable to meet goal due to: (see comment below) - Physician Prescribed Exercise Modalities: Treadmill, Biodyne, Rower, Airdyne, NuStep, SciFit Frequency: 3x/week for 12 weeks [36 sessions] Intensity: 60-80% maximum heart rate reserve from GXT Target Heart Rate:: 144-162 Resting Blood Pressure: 120/80 EKG Type: NSR - Outcomes & Goals Goals:: Verbalizes understanding of THR, RPE & goal METS by session 6, Documents in home exercise log/reports 30 min aerobic 5 day/wk by DC, Demonstrates accurate pulse taking by DC, Other additional outcome/goals: see below - Intervention & Plan Exercise Program Goals: Instruct on personal THR & RPE, Instruct on MET level & personal MET goal, Show patient to take own pulse /validate performance until accurate, Instruct on home exercise, Other additional plan/int - Physical Activity Home Exercise Physical Activity - Home Exercise: Safe Exercise, Warm-up, Self-monitoring, Cool-Down, Home Exercise > 30 min Daily, Sitting Time <3 hours/daily - Outcomes & Goals Outcomes/Goals: Demonstrates correct Warm-up/exercise Cool-Down (S3) if = 2.5 METs, Verbalizes symptoms of exercise intolerance by Session 3 (S3), Demonstrate safe equipment use (S3) & follows exercise prescrition (6), Other: See below - Intervention & Plan Plan/Intervention: Instruct warm-up & cool-down if exercising at > 2 METs, Instruct on symptoms of exercise intolerance & actions to take, Instruct & monitor on saf, Assess intial functional capacity & safety risk, Other See below Nutrition - Initial Assessment - Program Goals Nutrition Program Goals: LDL <100 optimal. 100 - 129 Near optimal. 130 - 159 Borderline High. 160 - 189 High. Total Cholesterol <200 desirable. 200 - 239 Borderline High. >/= 240 High. HDL < 40 Low >/=60 High. Triglycerides <150 desirable. <199 optimal. VlDL 5 - 40. HgbA1C <7%. BMI <25 Patient has diagnosis of Hyperlipidemia (ICD E78)?: No - Visit Date of Assessment:: 07/12/21 - Cholesterol/Lipids Determine presence & major risk factors that modify LDL goal: Hypertension or hypertensive medication, Low HDL cholesterol <40 mg/dL*, Family history of premature CHD in Male < 55 years: female <65 yearsFa, Age men > 45 years; women >/= 55 years Outcomes/Goals: Pt IDs own risk factors & lifestyle modifications by Session 10, Verbalizes symptoms of angina & response by session 3., Pt independently manages, Other Additional Outcomes/Goals: Intervention/Plan: Advocate for lipid panel cholesterol medication if applicable, Instruct on personal lipid levels & lipid goals/NCEP guidelines, Instruct on cholesterol, Other additional plan/int Referral to dietitian:: Yes - Diabetes (Other Core Measures) Diabetes Type: Diagnosis Type I ICD-10 E10 Insulin dependent injection/pump?: Yes Do you monitor your blood sugar at home?: Yes Referral to Diabetic Clinic:: Yes Outcomes/Goals:: Able to state symptoms of, Able to state, Able to state, Other additional Intervention/Plan:: Instruct on, Refer to, Instruct on, Other - Weight Mgt (Other Care) Height: 5 ft 6 in Weight:: 95.254 kg BMI: 33.9 Diagnosis Overweight/Obesity BMI> 30% ICD-10 E66: Yes Diagnosis High BMI/Morbid Obesity BMI> 35% ICD-10 Z68: No Outcomes/Goals: Pt sets, maintains & shows weight loss goal & trend during rehab, Other additional outcomes/goals Intervention/Plan: Instruct on ideal BMI & set weight loss goal w/patient, Assist pt to ID & incorporate diet changes for weight loss by S9, Refer to Structured Weight Loss program as appropriate, Encourage goal of using 250- 300dcal per session for weight loss, Other additional plan/interventions - Healthy Eating Habits Will attend diet classes:: Yes Outcomes/Goals:: Consume diet rich in vegs,fruits,whole grain/high fiber,fish,lean meat, Limit sat/trans fats,cholesterol & added salts & sugars, Other additional outcome/goals: Intervention/Plan:: Assess current eating habits, Other Additional plan/interventions - Education Gave educational materials for:: Signs & symptoms of hypoglycemia, Signs & symptoms of hyperglycemia, Relate diabetes to coronary artery disease, Healthy eating Nutrition - 30-Day Assessment Nutrition - 60-Day Assessment Nutrition - 90-Day Assessment Nutrition - Final Assessment Medical - Initial Assessment - Visit Date of Eval: 07/12/21 - initial eval - Medication Compliance Preventative Medication(s):: Aspirin, Ticagrelor/P2Y12 inhibitor, Statin/lipid, Beta linda H/O mental health issues: depression, anxiety, or addiction?: No Doesn?t believe in the benefits of treatment?: No Believes medications are unnecessary or harmful?: No Has a concern about medication side effects?: No Expresses concern over the cost of medications?: No Outcomes/Goals: Verbalizes medications,desired effect & common side effects @ DC, Pt self-reports following medication regimen, Keeps card in wallet w/medications listed by DC, Other additional outcome/goals: Interventions/plans: Instruct on medication effects & side effects, Review medication list w/patient every two weeks, Instruct importance of taking meds as ordered & assist problem solving, Other additional - Tobacco Use Tobacco Use: Non-smoker Do you use smokeless tobacco?: No Outcomes/Goals: Smoking cessation achieved or maintained by discharge, Identify aids/strategies for achieving smoking cessation by session 6, Other additional outcome/goals Interventions/plan: Instruct on effects of smoking & provide smoking cessation resource, Assist pt to set quit date & provide encouragement, Assist pt to develop strategies to achieve/maintain quit date, Assist pt w/nicotine replacement & medication for cessation success, Other additional plan/interventions - Hypertension Hypertension Diagnosis:: Hypertension ICD-10 I10 Resting Blood Pressure:: 120/80 [place] [employer] Hypertension Guidelines: [place] [employer] Hypertension Guidelines. Normal BP Less than 120/80. Elevated BP 120/80. Hypertension Stage 1: BP 130-139/80-89. Hypertesnion Stage 2: BP 140 or higher/90 or higher. Hypertension Crisis: BP higher than 180/120 Outcomes/Goals: Able to verbalize/achieve optimal blood pressure <130/80, Incorporates diet changes & exercise for blood pressure control by DC, Other additional outcomes/goals Interventions/plan: Instruct on optimal blood pressure, hypertension & medications, Instruct on effects of sodium, alcohol, stress, exercise &hypertension, Other additional plan/interventions - Tobacco Cessation Referral Smoking Cessation Referral:: No Individual Education/Counseling:: No Education Schedule Given:: Yes Medical- 30-Day Assessment Medical- 60-Day Assessment Medical- 90-Day Assessment Medical - Final Assessment Psychosocial - Initial Assess - VIsit Date of Eval: 07/12/21 - initial eval History of previous Mental disease:: No - Outcomes/Goals: See list Psychosocial Outcomes/Goals:: ID's personal stressors & 2 strategies to manage stress by discharge, Other Additional outcome/goals: - Intervention/Plan: See List Interventions/Plan:: Assess stressors,coping strategies & signs of derpression on admission, Instruct/assist pt to develop coping & personal stress Mgt strategies, Refer to Behavioral Health if appropriate, Refer to Physician if ap propriate, Instruct patient to recognize signs & symptoms of depression, Instruct patient to recog, Other additional plan/intervention Psychosocial - 30-Day Assess Psychosocial - 60-Day Assess Psychosocial - 90-Day Assess Psychosocial - Final Assessmen Patient Health Questionnaire Initial Assessment 1. Little interest or pleasure in doing things: Not at all 2. Feeling down, depressed, or hopeless: Not at all 3. Trouble falling or staying asleep, or sleeping too much: Not at all 4. Feeling tired or having little energy: Not at all 5. Poor appetite or overeating: Not at all 6. Feeling bad about yourself -- or that you are a failure or have let yourself or your family down: Not at all 7. Trouble concentrating on things, such as reading the newspaper or watching television: Not at all 8. Moving or speaking so slowly that other people could have noticed. Or the opp osite - being so fidgety or restless that you have been moving around a lot more than usual: Not at all 9. Thoughts that you would be better off , or of hurting yourself in some way: Not at all How difficult have these problems made it for you to do your work, take care of things at home, or get along with other people?: Not difficult at all Total Score: 0 RANDALL-Q SV Test - Statements CAD is a disease of the arteries in the heart: False Examples of risk factors for heart disease: True Angina is chest pain or discomfort: True The benefits of resistance training include: True Eating more meat and dairy products: False Anti-platelet medications such as aspirin are important: True The only effective way to manage stress: False An exercise warm-up slowly increases heart rate: I Don't Know Prepared, processed foods usually have high sodium: True Depression is common after a heart attack: I Don't Know The statin medications lower cholesterol: True To control blood pressure, lower the amount of sodium: True If someone gets chest discomfort during walking: False Transfats are partially hydrogenated vegetable oils: True Sleep apnea that is not treated increases the risk: True To control cholesterol, one should become a vegetarian: True Someone knows if he/she is exercising at the right level: True Diabetes cannot be prevented with exercise & health eating: False Stress is a large risk for heart attack: True A diet that can help lower blood pressure is rich in: True - Total Score Total Correct Responses: 16 Self-Efficacy Initial Assessment We would like to know how confident you are in doing certain activities. Please select your confidence level for:: Select your confidence level for the following using the scale 1-10 where 1 is not at all confident and 10 is totally confident. Your score is the average of all 6 responses. Fatigue: How confident are you that you can keep the fatigue caused by your disease from interfering with the things you want to do? Select Number: 9 Physical Discomfort or Pain: How confident are you that you can keep the physical discomfort or pain of your disease from interfering with the things you want to do? Select Number: 9 Emotional Distress: How confident are you that you can keep the emotional distress caused by your disease from interfering with the things you want to do? Select Number: 10 Other Symptoms or Health Problems: How confident are you that you can keep other symptoms or health problems from interfering with the things you want to do? Select Number: 9 Different Tasks and Activities: How confident are you that you can do the different tasks and activities needed to manage your health condition so as to reduce your need to see a doctor? Select Number: 9 Medication: How confident are you that you can do things other than just taking medication to reduce how much your illness affects your everyday life? Select Number: 9 Total Score:: 9 Nutrition Survey - Nutrition Survey Initial Have you lost >10 lbs over the past 2 months without trying?: No Are you following a special diet at home for diabetes, low fat, or low salt?: Yes Are you interested in meeting with a dietitian for help understanding your diet?: Yes Do you eat less than 3 meals a day?: No Do you eat fatty meats (morrison, sausage, ribs, etc), fried foods, desserts, large amounts of salad dressings, margarine, butter, or cheese most days?: No Do you have food allergies? [Enter types in comment field]: No Do you eat in restaurants more than 3 times a week?: No Do you season food with salt, seasoning salt, or garlic salt?: No Do you used canned, boxed, frozen meals, or soups, seasoning packets?: No Total Score:: 2
--- NOTE | 2021-07-12 14:03 | PCM.CR.HP2 ---
CR - History & Physical - General Arrival date:: 07/12/21 Arrival time:: 14:05 Date of Referral:: 06/15/21 Date of CR Evaluation:: 07/12/21 Referring Physician: Dr. Deepak Barrett Primary Diagnosis: NSTEMI, PCI with coronary stent - History of Present Cardiac Event Onset Date: Enter Onset Date of cardiac illnesses in Comment field below Acute Myocardial Infarction within 12 months:: Yes PTCA or coronary stenting:: Yes - 06/15/2021 - Sleep Disorder Evaluation Hx of Sleep Apnea: No Do you snore loudly (louder than talking or can be heard through closed doors)?: No Do you often feel tired/ fatigued/ sleepy during daytime?: No Has anyone observed you stop breathing during sleep?: No History of Hypertension (for STOP score): Yes STOP Results: Negative - Medications Home Medications: Ambulatory Orders Medication Instructions Recorded blood sugar diagnostic #10 ea 06/18/18 insulin syringe-needle U-100 1 mL #10 ea 06/18/18 31 gauge x 11/20 famotidine 20 mg tablet 20 mg PO BID 09/01/20 Humalog U-100 Insulin 100 unit/mL See Rx Instructions SC .COMPLEX 11/28/20 subcutaneous solution #90 ml NS Dexcom G6 Sensor #9 ea NS 12/08/20 cetirizine [Zyrtec] 10 mg PO DAILY 06/14/21 blood-glucose transmitter #1 ea 06/20/21 aspirin 81 mg tablet,delayed 81 mg PO DAILY #90 tab 06/26/21 release atorvastatin 80 mg tablet 80 mg PO QHS #90 tab 06/26/21 carvedilol 12.5 mg tablet 12.5 mg PO BID #180 tab 07/11/21 ticagrelor 90 mg tablet 90 mg PO BID #180 tab 07/11/21 - Allergies Allergies/Adverse Reactions: Allergies No Known Allergies Allergy (Verified 07/11/21 11:33) Advanced Directives - Advanced Directives Power of Corporate Driver: No Living Will: No Advance Directives Information Provided: Yes Advance Directives on File: No DNR Order?:: No Past Medical History - Covid-19 Screening Fever: No Unexplained muscle aches: No Current respiratory symptoms: No Upper respiratory infections symptoms: No Gastro-intestinal symptoms: No Rnd-Yhug-[place] symptoms: No Has tested positive for COVID-19 in last 30 days: No Had contact w/person w/symptoms or Covid-19 (+) last 14 days: No Has High Risk Exposures ID'd by Health dept/Inf Control team: No 65 years or older:: No Lives in Assisted Living facility:: No Has a chronic lung disease or moderate to severe asthma:: No Has a serious heart condition:: Yes Immunocompromised:: No Severely obese (Body Mass Index of 40 or higher):: No Diabetic:: Yes Has chronic kidney disease undergoing dialysis:: No Has liver disease:: No - Past Medical Illness Medical History: Past Medical History (Last Reviewed 07/11/21 @ 11:34 by Franck Barry CONSULTING NETWORKING ENGINEER, CONSULTING NETWORKING ENGINEER-C) Atherosclerotic heart disease of [place] coronary artery without angina pectoris I25.10 Diabetes E11.9 Diabetes mellitus type 1, uncontrolled, without complications E10.65 Hives L50.9 HTN (hypertension) I10 Non-ST elevated myocardial infarction (non-STEMI) I21.4 Presence of insulin pump Z96.41 Presence of stent in coronary artery Onset Date: ~06/15/21 Z95.5 Successful PCI of diffuse mid LAD stenosis with a predilatation using 2 x 20 mm balloon Followed by placement of a drug-eluting stent 2.75 x 2 6 mm/Orsiro per cath 06/15/21 Seasonal allergies J30.2 Type 1 diabetes mellitus without complications E10.9 DX: 2000 Last exacerbation : DKA : never Hypoglycemic episode : never ER visit : never - Past Surgical History Surgical History: Past Surgical History (Last Reviewed 07/11/21 @ 11:34 by Franck Barry CONSULTING NETWORKING ENGINEER, CONSULTING NETWORKING ENGINEER-C) History of tonsillectomy Z90.89 Presence of coronary angioplasty implant and graft Onset Date: ~06/15/21 Z95.5 Successful PCI of diffuse mid LAD stenosis with a predilatation using 2 x 20 mm balloon Followed by placement of a drug-eluting stent 2.75 x 2 6 mm/Orsiro per cath 06/15/21 - Family History Summary Family History: Family History (Last Updated 07/11/21 @ 11:36 by Franck Barry CONSULTING NETWORKING ENGINEER, CONSULTING NETWORKING ENGINEER-C) Son Diabetes Diagnosed at 18 months; Mother Hypertension Grandfather CAD (coronary artery disease) Age 43 Other Anxiety Depression Social History - Smoking History Smoking Status: Never smoker Hx Tobacco Use: No Hx Smoking Exposure: No - Alcohol Use Alcohol Usage: Yes - socially - Substance Abuse Hx Substance Use: No - Occupation Occupation (List type of work in comments):: Employed Hours worked per day:: 9 - Hobbies, Recreation, Social Activities Hobbies: Other - kids Social Environment - Status Marital Status: - Current Living Arrangements Living Environment:: Family - Children How many children do you have?: 2 Do any of your children live nearby?: Yes - Safety Do you feel safe in your surroundings?: Yes - Assistance Do you need any assistance at home?: no Review of Systems - Review of Systems Hints: Right click = Denies ([place]ash). Left click = Reports ([place]) Review of Present Symptoms: Reports: Shortness of Breath with Exertion, Appetite - Normal, Appetite - Special Diet, Sleep - Normal. Denies: Shortness of Breath at Rest, PVD, Operative Discomfort, Angina, Wound Healing, Dizziness/Lightheadedness, Fatigue, Heart Arrhythmia/Irregularities, Sexual Changes - Pain Is Patient Pain Free?: Yes Risk Factor Assessment - Vital Signs Pulse Ox: 98 - Pulse Pulse Rate: 73 Pulse Rhythm: Regular - Hypertension Blood Pressure Sitting - Left Arm: 120/80 - Stress Stress: Recent - Diabetes Diabetic History: Type I Nutrition Referral for Diabetes: Yes - Obesity Height: 5 ft 7 in Weight:: 95.254 kg Weight in Pounds: 210.0 lbs Body Mass Index (BMI): 32.8 Nutritional Referral for Obesity: No - Physical Inactivity Physical Inactivity: None - Risk Stratification Risk Guidelines: Lowest Risk: Risk Factor for Smoking, Risk Factor for Dyslipidemia, Risk Factor for Depression, Moderate Risk: Risk Factor for Obesity, Risk Factor for Sedentary Lifestyle, Highest Risk: Risk Factor for Diabetes, Risk Factor for Hypertension - Family History Family History: Family History (Last Updated 07/11/21 @ 11:36 by Franck Barry NP, CONSULTING NETWORKING ENGINEER-C) Son Diabetes Mother Hypertension Grandfather CAD (coronary artery disease) Other Anxiety Depression Motivation - Motivation to Participate On a scale of 1 to 10, how prepared are you to commit to attending program?: 10 What do you see as barriers to successfully being able to complete the program?: none What do you see as the benefits of succesfully completing the program? In other words, what do you hope to get out of participating in the program?: improved health Are there issues you are dealing with that will interfere with completing the program?: no Do you have a spouse or signficant other, family or friends who will help support you to complete the program?: yes
[2021-07-12 14:58] VITALS: BP 120/80; BMI 33.9
[2021-07-12 14:59] VITALS: BP 120/80; PULSE 73; O2SAT 98; BMI 32.8
== END 2021-07-12 23:59 | disposition short-term general hospital (02) ==
LOC: CR 13:54
PROVIDERS: PCP Family Medicine; Referring Provider Internal Medicine Cardiovascular Disease; Visit Provider Internal Medicine Cardiovascular Disease
DX: E11.9 Type 2 diabetes mellitus without complications (principal)

== ENCOUNTER 2021-08-04 15:45 | Outpatient (RCR) | payer BC, SELFPAY ==
--- NOTE | 2021-07-17 14:02 | PCM.CR.ITP ---
Diagnosis Nutrition - Initial Assessment Nutrition - 30-Day Assessment Nutrition - 60-Day Assessment Nutrition - 90-Day Assessment Nutrition - Final Assessment Medical - Initial Assessment Medical- 30-Day Assessment Medical- 60-Day Assessment Medical- 90-Day Assessment Medical - Final Assessment Psychosocial - Initial Assess Psychosocial - 30-Day Assess Psychosocial - 60-Day Assess Psychosocial - 90-Day Assess Psychosocial - Final Assessmen Nutrition Survey
== END 2021-08-07 23:59 ==
LOC: CR 15:45
PROVIDERS: PCP Family Medicine; Referring Provider Internal Medicine Cardiovascular Disease; Visit Provider Internal Medicine Cardiovascular Disease
DX: I25.10 Atherosclerotic heart disease of native coronary artery without angina pectoris (principal); Z95.5 Presence of coronary angioplasty implant and graft; I25.2 Old myocardial infarction
CPT/HCPCS: 93798

== ENCOUNTER 2021-08-30 14:00 | Outpatient (RCR) | payer BC, SELFPAY ==
[2021-08-14 08:27] VITALS: BMI 32.8
== END 2021-09-04 23:59 | disposition home or self-care (01) ==
LOC: NS 14:00
PROVIDERS: PCP Family Medicine; Referring Provider Internal Medicine Cardiovascular Disease; Visit Provider Internal Medicine Cardiovascular Disease
DX: E10.9 Type 1 diabetes mellitus without complications (principal)
CPT/HCPCS: 97802

== ENCOUNTER 2021-09-04 15:45 | Outpatient (RCR) | payer BC, SELFPAY ==
--- NOTE | 2021-08-14 08:18 | PCM.CR.ITP ---
Diagnosis Exercise - 30-day Assessment - Visit Date of Eval: 08/14/21 Session #:: 8 - Comments:: PATIENT LAST ATTENDED CR ON 08/04/2021, HE CALLED ON AND INFORMED CR STAFF HE HAD TESTED POSITIVE FOR COVID-19 ON Saturday08/09/2021 AND WILL BE OFF ON QUARANTINE FOR 14 DAYS. - Physician Prescribed Exercise Modalities: Treadmill, Airdyne, NuStep Frequency: 3x/week for 12 weeks [36 sessions] Intensity: 60-80% of age predicted maximum heart rate reserve Current METSs:: 6.0 INCREASE FROM 4.0 Target Heart Rate:: 115-151 Current RPE:: 12-13 Maximum Excercise HR:: 150 Resting Blood Pressure: 120/72 Maximum Exercise Blood Pressure: 154/76 Current Physical Activity or Exercising minutes: 39:56 - Outcomes & Goals Goals:: Verbalizes understanding of THR, RPE & goal METS by session 6, Documents in home exercise log/reports 30 min aerobic 5 day/wk by DC, Demonstrates accurate pulse taking by DC - Intervention & Plan Exercise Program Goals: Instruct on personal THR & RPE, Instruct on MET level & personal MET goal, Show patient to take own pulse /validate performance until accurate, Instruct on home exercise - 30-day Reassessments 30 day Reassessments:: Progressing - Outcomes & Goals Outcomes/Goals: Demonstrates correct Warm-up/exercise Cool-Down (S3) if = 2.5 METs, Verbalizes symptoms of exercise intolerance by Session 3 (S3), Demonstrate safe equipment use (S3) & follows exercise prescrition (6) - Intervention & Plan Plan/Intervention: Instruct warm-up & cool-down if exercising at > 2 METs, Instruct on symptoms of exercise intolerance & actions to take, Instruct & monitor on saf, Assess intial functional capacity & safety risk - 30-day Reassessments 30 day Reassessments:: Progressing Nutrition - Initial Assessment Nutrition - 30-Day Assessment - Program Goals Nutrition Program Goals: LDL <100 optimal. 100 - 129 Near optimal. 130 - 159 Borderline High. 160 - 189 High. Total Cholesterol <200 desirable. 200 - 239 Borderline High. >/= 240 High. HDL < 40 Low >/=60 High. Triglycerides <150 desirable. <199 optimal. VlDL 5 - 40. HgbA1C <7%. BMI <25 Patient has diagnosis of Hyperlipidemia (ICD E78)?: Yes - Visit Date of Assessment:: 08/14/21 Session #:: 8 - Cholesterol/Lipids Triglycerides (mg/dL): 71 Total Cholesterol (mg/dL): 163 LDL Cholesterol (mg/dL): 100 HDL Cholesterol (mg/dL): 49 Determine presence & major risk factors that modify LDL goal: Hypertension or hypertensive medication, Family history of premature CHD in Male < 55 years: female <65 yearsFa Outcomes/Goals: Pt IDs own risk factors & lifestyle modifications by Session 10, Verbalizes symptoms of angina & response by session 3., Pt independently manages Intervention/Plan: Instruct on personal lipid levels & lipid goals/NCEP guidelines, Instruct on cholesterol Referral to dietitian:: Yes - Medical Nutrition Therapy 30-day Reassessments:: Progressing - Diabetes (Other Core Measures) Diabetes Type: Diagnosis Type II ICD-10 E11 Fasting blood glucose:: 126 Hgb A1C (4.2 -6.3): 7.6 Insulin dependent injection/pump?: Yes - Humalog 100u/ml Non-Insulin Dependent?: No Do you monitor your blood sugar at home?: Yes Referral to Diabetic Clinic:: Yes Outcomes/Goals:: Able to state symptoms of, Able to state, Able to state Intervention/Plan:: Instruct on, Refer to, Instruct on 30-day Reassessments:: Progressing - Weight Mgt (Other Care) Not Applicable: No Height: 5 ft 6 in Weight:: 203 lb BMI: 32.8 Diagnosis Overweight/Obesity BMI> 30% ICD-10 E66: Yes Diagnosis High BMI/Morbid Obesity BMI> 35% ICD-10 Z68: No Outcomes/Goals: Pt sets, maintains & shows weight loss goal & trend during rehab Intervention/Plan: Instruct on ideal BMI & set weight loss goal w/patient, Assist pt to ID & incorporate diet changes for weight loss by S9, Refer to Structured Weight Loss program as appropriate, Encourage goal of using 250-300dcal per session for weight loss 30 day Reassessments:: Progressing - Healthy Eating Habits Will attend diet classes:: Yes Outcomes/Goals:: Consume diet rich in vegs,fruits,whole grain/high fiber,fish,lean meat, Limit sat/trans fats,cholesterol & added salts & sugars Intervention/Plan:: Assess current eating habits 30-day Reassessments:: Progressing - Education Gave educational materials for:: Signs & symptoms of hypoglycemia, Signs & symptoms of hyperglycemia, Relate diabetes to coronary artery disease, Healthy eating Nutrition - 60-Day Assessment Nutrition - 90-Day Assessment Nutrition - Final Assessment Medical - Initial Assessment Medical- 30-Day Assessment - Visit Date of Eval: 08/14/21 Session #:: 8 - Medication Compliance Preventative Medication(s):: Aspirin, Ticagrelor/P2Y12 inhibitor, Statin/lipid, Beta linda H/O mental health issues: depression, anxiety, or addiction?: No Doesn?t believe in the benefits of treatment?: No Believes medications are unnecessary or harmful?: No Has a concern about medication side effects?: No Expresses concern over the cost of medications?: No Outcomes/Goals: Verbalizes medications,desired effect & common side effects @ DC, Pt self-reports following medication regimen, Keeps card in wallet w/medications listed by DC Interventions/plans: Instruct on medication effects & side effects, Review medication list w/patient every two weeks, Instruct importance of taking meds as ordered & assist problem solving 30-day Reassessments:: Progressing - Tobacco Use Tobacco Use: Non-smoker - Hypertension Hypertension Diagnosis:: Hypertension ICD-10 I10 Resting Blood Pressure:: 120/72 [place] [employer] Hypertension Guidelines: [place] [employer] Hypertension Guidelines. Normal BP Less than 120/80. Elevated BP 120/80. Hypertension Stage 1: BP 130-139/80-89. Hypertesnion Stage 2: BP 140 or higher/90 or higher. Hypertension Crisis: BP higher than 180/120 Peak Exercise Blood Pressure:: 154/76 Outcomes/Goals: Able to verbalize/achieve optimal blood pressure <130/80, Incorporates diet changes & exercise for blood pressure control by DC Interventions/plan: Instruct on optimal blood pressure, hypertension & medications, Instruct on effects of sodium, alcohol, stress, exercise &hypertension 30 day Reassessments:: Progressing - Tobacco Cessation Referral Smoking Cessation Referral:: No Individual Education/Counseling:: No Education Schedule Given:: Yes Medical- 60-Day Assessment Medical- 90-Day Assessment Medical - Final Assessment Psychosocial - Initial Assess Psychosocial - 30-Day Assess - VIsit Date of Eval: 08/14/21 Session #:: 8 Not Applicable: Yes History of previous Mental disease:: No - Psychosocial Test Tool Used:: PHQ-9 Questionnaire phq-9 Severity: Severity. 1-4 Minimal Depression. 5-9 Mild Depression. 10-14 Moderate Depression. 15-19 Moderately Sever Depression. 20-27 Severe Depression. Rule: - Referral to Behavioral Health PS - Interventions: Yes Attend Stress Management Classes, No Referral to Behavioral Health if PHQ-9 score >9:, No Referral to [facility], No Referral to Physician if PHQ-9 if score is 5-9: - Outcomes/Goals: See list Psychosocial Outcomes/Goals:: ID's personal stressors & 2 strategies to manage stress by discharge - Intervention/Plan: See List Interventions/Plan:: Assess stressors,coping strategies & signs of derpression on admission, Instruct/assist pt to develop coping & personal stress Mgt strategies, Instruct patient to recognize signs & symptoms of depression, Instruct patient to recog - 30-day Reassessments: 30 day Reassessments:: Progressing Psychosocial - 60-Day Assess Psychosocial - 90-Day Assess Psychosocial - Final Assessmen Patient Health Questionnaire 30-Day Re-eval Assessment 1. Little interest or pleasure in doing things: Not at all 2. Feeling down, depressed, or hopeless: Not at all 3. Trouble falling or staying asleep, or sleeping too much: Not at all 4. Feeling tired or having little energy: Not at all 5. Poor appetite or overeating: Not at all 6. Feeling bad about yourself -- or that you are a failure or have let yourself or your family down: Not at all 7. Trouble concentrating on things, such as reading the newspaper or watching television: Not at all 8. Moving or speaking so slowly that other people could have noticed. Or the opposite - being so fidgety or restless that you have been moving around a lot more than usual: Not at all 9. Thoughts that you would be better off , or of hurting yourself in some way: Not at all Total Score: 0 Self-Efficacy 30-Day Re-eval Assessment We would like to know how confident you are in doing certain activities. Please select your confidence level for:: Select your confidence level for the following using the scale 1-10 where 1 is not at all confident and 10 is totally confident. Your score is the average of all 6 responses. Fatigue: How confident are you that you can keep the fatigue caused by your disease from interfering with the things you want to do? Select Number: 9 Physical Discomfort or Pain: How confident are you that you can keep the physical discomfort or pain of your disease from interfering with the things you want to do? Select Number: 9 Emotional Distress: How confident are you that you can keep the emotional distress caused by your disease from interfering with the things you want to do? Select Number: 10 Other Symptoms or Health Problems: How confident are you that you can keep other symptoms or health problems from interfering with the things you want to do? Select Number: 10 Different Tasks and Activities: How confident are you that you can do the different tasks and activities needed to manage your health condition so as to reduce your need to see a doctor? Select Number: 9 Medication: How confident are you that you can do things other than just taking medication to reduce how much your illness affects your everyday life? Select Number: 9 Total Score:: 9 Nutrition Survey
[2021-08-14 08:27] VITALS: BP 120/72; BP 154/76; BMI 32.8
== END 2021-09-04 23:59 ==
LOC: CR 15:45
PROVIDERS: PCP Family Medicine; Referring Provider Internal Medicine Cardiovascular Disease; Visit Provider Internal Medicine Cardiovascular Disease
DX: I25.10 Atherosclerotic heart disease of native coronary artery without angina pectoris (principal); Z95.5 Presence of coronary angioplasty implant and graft; I25.2 Old myocardial infarction
CPT/HCPCS: 93798

== ENCOUNTER 2021-09-20 13:52 | Outpatient (RCR) | payer BC, SELFPAY ==
[2021-08-14 08:27] VITALS: BMI 32.8
== END 2021-10-05 23:59 ==
LOC: NS 13:52
PROVIDERS: PCP Family Medicine; Referring Provider Internal Medicine Cardiovascular Disease; Visit Provider Internal Medicine Cardiovascular Disease
DX: E10.9 Type 1 diabetes mellitus without complications (principal)
CPT/HCPCS: 97803

== ENCOUNTER 2021-09-21 08:57 | Outpatient (CLI) | payer BC, SELFPAY ==
[2021-08-14 08:27] VITALS: BMI 32.8
[2021-09-21 12:42] LABS: Cholesterol 126 mg/dL (200); High Density Lipoprotein 37 mg/dL; Triglycerides 52 mg/dL; Very Low Density Lipoprotein 10 mg/dL (5-40)
== END 2021-09-21 23:59 | disposition home or self-care (01) ==
PROVIDERS: PCP Family Medicine; Referring Provider Nurse Practitioner Family; Visit Provider Nurse Practitioner Family
DX: I25.10 Atherosclerotic heart disease of native coronary artery without angina pectoris (principal); E11.9 Type 2 diabetes mellitus without complications
CPT/HCPCS: 36415; 80061

== ENCOUNTER 2021-10-04 15:45 | Outpatient (RCR) | payer BC, SELFPAY ==
[2021-08-14 08:27] VITALS: BMI 32.8
[2021-09-05 00:36] VITALS: BP 120/72; BP 154/76
== END 2021-10-05 23:59 | disposition home or self-care (01) ==
LOC: CR 15:45
PROVIDERS: PCP Family Medicine; Referring Provider Internal Medicine Cardiovascular Disease; Visit Provider Internal Medicine Cardiovascular Disease
DX: I25.10 Atherosclerotic heart disease of native coronary artery without angina pectoris (principal); I25.2 Old myocardial infarction; Z95.5 Presence of coronary angioplasty implant and graft
CPT/HCPCS: 93798

== ENCOUNTER 2021-10-06 09:41 | Outpatient (RCR) | payer BC, SELFPAY ==
[2021-08-14 08:27] VITALS: BMI 32.8
[2021-10-06 00:36] VITALS: BP 120/72; BP 154/76
== END 2021-11-04 23:59 ==
LOC: CR 09:41
PROVIDERS: PCP Family Medicine; Referring Provider Internal Medicine Cardiovascular Disease; Visit Provider Internal Medicine Cardiovascular Disease
DX: I25.10 Atherosclerotic heart disease of native coronary artery without angina pectoris (principal); Z95.5 Presence of coronary angioplasty implant and graft; I25.2 Old myocardial infarction
CPT/HCPCS: 93798

== ENCOUNTER → 2022-01-19 | Outpatient (CLI) | payer BC, SELFPAY ==
[2021-08-14 08:27] VITALS: BMI 32.8
== END | disposition home or self-care (01) ==
LOC: LABSPEC 14:02
PROVIDERS: PCP Family Medicine; Visit Provider Family Medicine
DX: R19.7 Diarrhea, unspecified (principal)
CPT/HCPCS: 87493; 87506

== ENCOUNTER → 2022-08-17 | Outpatient (CLI) | payer BC, SELFPAY ==
[2021-08-14 08:27] VITALS: BMI 32.8
[2022-08-17 08:25] LABS: Microalbumin,Random Urine 9.7 mg/L (NO RANGE EST.); Microalbumin:Creatinine Ratio 3.5 mg/g CRE (<30 mg/g CRE)
[2022-08-17 08:28] LABS: Vitamin D,25 Hydroxy 47.8 ng/mL
[2022-08-17 08:40] LABS: BUN 19 mg/dL (7-18); Creatinine, Serum 0.93 mg/dL (0.70-1.30); Glucose 207 mg/dL (74-106)
[2022-08-17 08:41] LABS: AST(SGOT) 27 U/L (15-37); Alanine Aminotransfer ALT/SGPT 55 U/L (16-61); Albumin, Serum 3.7 g/dL (3.2-5.0); Alkaline Phosphatase 76 U/L (45-117); Anion Gap 5 (5-15); BUN/Creat Ratio 20.4 RATIO (10-20); Calcium,Total 9.1 mg/dL (8.5-10.1); Chloride 105 mmol/L (98-107); Cholesterol 154 mg/dL (200); EST Glomerular Filtration Rate 94 mL/min (>60); Est Glom Filt Rate - Afr Amer 113 mL/min (>60); Globulin 3.6 g/dL (2.2-4.2); High Density Lipoprotein 38 mg/dL; Potassium 4.4 mmol/L (3.5-5.1); Protein, Total 7.3 g/dL (6.4-8.2); Sodium Level 139 mmol/L (136-145); Thyroid Stim Hormone (TSH) 3.58 uIU/mL (0.358-3.74); Triglycerides 87 mg/dL; Very Low Density Lipoprotein 17 mg/dL (5-40)
== END | disposition home or self-care (01) ==
LOC: LAB 07:21
PROVIDERS: PCP Family Medicine; Referring Provider Internal Medicine Endocrinology, Diabetes & Metabolism; Visit Provider Internal Medicine Endocrinology, Diabetes & Metabolism
DX: E11.9 Type 2 diabetes mellitus without complications (principal); I10 Essential (primary) hypertension; I25.10 Atherosclerotic heart disease of native coronary artery without angina pectoris; E55.9 Vitamin D deficiency, unspecified; Z96.41 Presence of insulin pump (external) (internal)
CPT/HCPCS: 36415; 80053; 80061; 82043; 82306; 82570; 84443

== ENCOUNTER → 2023-02-09 | Outpatient (CLI) | payer BC, SELFPAY ==
[2021-08-14 08:27] VITALS: BMI 32.8
[2023-02-09 08:50] LABS: Microalbumin,Random Urine 5.8 mg/L (NO RANGE EST.); Microalbumin:Creatinine Ratio 7.4 mg/g CRE (<30 mg/g CRE)
[2023-02-09 08:51] LABS: ALB/GLOB Ratio 0.9 RATIO (0.9-2.4); AST(SGOT) 34 U/L (15-37); Alanine Aminotransfer ALT/SGPT 68 U/L (16-61); Albumin, Serum 3.6 g/dL (3.2-5.0); Alkaline Phosphatase 90 U/L (45-117); Anion Gap 6 (5-15); BUN 11 mg/dL (7-18); BUN/Creat Ratio 13.1 RATIO (10-20); Calcium,Total 8.8 mg/dL (8.5-10.1); Chloride 109 mmol/L (98-107); Cholesterol 139 mg/dL (200); Creatinine, Serum 0.84 mg/dL (0.70-1.30); EST Glomerular Filtration Rate 105 mL/min (>60); Est Glom Filt Rate - Afr Amer 127 mL/min (>60); Globulin 4.2 g/dL (2.2-4.2); Glucose 140 mg/dL (74-106); High Density Lipoprotein 44 mg/dL; Potassium 3.6 mmol/L (3.5-5.1); Protein, Total 7.8 g/dL (6.4-8.2); Sodium Level 141 mmol/L (136-145); Thyroid Stim Hormone (TSH) 2.14 uIU/mL (0.358-3.74); Triglycerides 138 mg/dL; Very Low Density Lipoprotein 28 mg/dL (5-40)
[2023-02-11 09:08] LABS: Vitamin D,25 Hydroxy 39.7 ng/mL
[2023-02-15 11:09] LABS: Testosterone, % Free 1.37 % (1.50-4.20); Testosterone, Free 10.37 ng/dL (5.00-21.00); Testosterone, Total 757 ng/dL (264-916)
== END | disposition home or self-care (01) ==
LOC: LAB 07:36
PROVIDERS: PCP Family Medicine; Referring Provider Nurse Practitioner Family; Visit Provider Nurse Practitioner Family
DX: E11.9 Type 2 diabetes mellitus without complications (principal); E66.9 Obesity, unspecified; E78.5 Hyperlipidemia, unspecified; I10 Essential (primary) hypertension; R53.83 Other fatigue; R68.82 Decreased libido
CPT/HCPCS: 36415; 80053; 80061; 82043; 82306; 82570; 84402; 84403; 84443

== ENCOUNTER 2024-07-26 08:10 | Emergency (ER) | payer BC, SELFPAY ==
[2021-08-14 08:27] VITALS: BMI 32.8
[2024-07-26 08:10] VITALS: BP 169/89; PULSE 127; PULSE 132; RESP 20; TEMP 36.6; O2SAT 95; BMI 33.6
--- NOTE | 2024-07-26 08:29 | EKG12_ITS ---
Test Reason : PALPS Blood Pressure : */* mmHG Vent. Rate : 120 BPM Atrial Rate : 120 BPM P-R Int : 142 ms QRS Dur : 74 ms QT Int : 298 ms P-R-T Axes : 31 -1 52 degrees QTcB Int : 421 ms Sinus tachycardia Otherwise normal ECG Confirmed by NEWTON SANDHU, DEON ([id number]), make up editor ENRIQUE RICK ([id number]) on 07/27/2024 10:55:07 A M Referred By: NACHO Confirmed By: DEON GLEZ MD
[2024-07-26 08:50] VITALS: PULSE 105; RESP 13; O2SAT 95
[2024-07-26] MEDS: Albuterol 2.5 MG/3 ML VIAL.NEB. INHALATION ×3 (08:54→09:54)
[2024-07-26 08:55] LABS: Basophil# 0.02 X10^3/uL; Basophil% 0.4 % (0-1); Eosinophil# 0.01 X10^3/uL; Eosinophils% 0.2 % (0-5); Hematocrit 41.6 % (40-54); Hemoglobin 13.4 g/dL (13.0-16.5); Lymphocyte % 7.9 % (19-41); Mean Corp Hgb Conc 32.2 g/dL (32-36); Mean Corpuscular Hgb 24.7 pg (27.0-32.0); Mean Corpuscular Volume 76.8 fL (80-94); Mean Platelet Vol. 9.1 fl (6.2-12.0); Monocyte# 0.66 X10^3/uL; NRBC Flagged by Analyzer 0 % (0-5); Neutrophil # 3.97 X10^3/uL (2.7-7.7); Neutrophil % 78.1 % (47-70); POSITIVE DIFFERENTIAL YES; Platelet Count 240 K/mm3 (150-450); RBC Distribution Width CV 14.5 % (11.6-14.6); RBC Distribution Width SD 39.4 fl (35.1-43.9); Red Blood Count 5.42 M/mm3 (4.6-6.2); White Blood Count 5.1 K/mm3 (4.4-11.0)
[2024-07-26] MEDS: Ondansetron 4 MG/2 ML Vial IV (09:00)
--- NOTE | 2024-07-26 09:11 | EDS_ITS ---
HPI History of Present Illness Chief Complaint: Palpitations Detail of Chief Complaint: Rapid heart rate and upper respiratory tract infectious symptoms Informant: patient and spouse/S.O. Onset/Context/Timing Onset: Weeks (Illness started around . Heart rate has been rapid for the past several days.) Context: Sudden Onset Timing: Continuous and Waxes and wanes Quality: Upper respiratory tract infectious systems and rapid heart rate up to 148 w Current Severity: Moderate Maximum Severity: Severe Worsened by: Activity Relieved by: Nothing Associated Symptoms Associated Symptoms: Congestion, sore throat, nonproductive cough, intermittent wheezing and rap Narrative Narrative: Patient is a 43-year-old male. He presents with respiratory symptoms are around the holiday season. He seemed to get better/resolved. Symptoms recurred. He presently is concerned because of heart rate 1 20-1 30 at rest. Heart rate has been as high as 148 since midnight. This was with walking. Patient presently denies dyspnea. Patient has had intermittent fever. Tmax in the past 24 hours is 100.4. He denies headache. He denies double vision blurred vision loss of vision. Eyes porter ears decreased hearing. He does endorse congestion and postnasal drainage with sore throat. He does endorse cough which essentially nonproductive. He has had intermittent wheezing. Wound was seen at the urgent care last Saturday he had no wheezing. He was prescribed a 7-day course of amoxicillin probably took his last dose yesterday. They did not do an x-ray at that time. He denies abdominal pain, nausea vomiting or diarrhea. He denies black or maroon stool. He does endorse thirst, dry mouth and increased fluid intake. He reports decreased urine output. His blood sugar has been approximately 170. Normal for him is 150. He does not know what his last A1c level was. He has history of coronary disease with placement of stent June 2021, hyperlipidemia, h ypertension and type 1 diabetes. He does have an insulin pump. Patient denies neck pain or stiffness. He denies photophobia. He denies rash. Prior similar symptoms: Yes Recent Illness/Hospitalization: Yes [facility] Medical History Essential hypertension Obesity Atherosclerotic heart disease of [place] coronary artery without angina pectoris Presence of stent in coronary artery (~06/15/21) HTN (hypertension) Non-ST elevated myocardial infarction (non-STEMI) Presence of insulin pump Hives Seasonal allergies Diabetes mellitus type 1, uncontrolled, without complications Type 1 diabetes mellitus without complications Home Medications ?Medication ?Instructions ?Recorded ?Last Taken ?Type blood sugar diagnostic (OneTouch #10 ea 06/18/18 Unknown History Ultra Blue Test Strip) insulin syringe-needle U-100 1 mL #10 ea 06/18/18 Unknown History 31 gauge x 5/16 (BD Insulin Syringe Ultra-Fine) famotidine 20 mg tablet 20 mg PO BID GERD 09/01/20 06/14/21 07:00 History cetirizine 10 mg tablet (Zyrtec) 10 mg PO DAILY allergies 06/14/21 06/13/21 History aspirin 81 mg tablet,delayed See Rx Instructions .Route 07/09/23 Unknown Rx release .COMPLEX #90 tabs atorvastatin 80 mg tablet (Lipitor) 80 mg PO QHS #90 tabs 07/09/23 Unknown Rx blood-glucose transmitter (Dexcom #1 ea 07/11/23 Unknown Rx G6 Transmitter device) Dexcom G6 Sensor (blood-glucose #9 ea 10/09/23 Unknown Rx sensor) Humalog U-100 Insulin 100 unit/mL 130 unit (1.3 mL) continuous 04/03/24 Unknown Rx subcutaneous solution (insulin subcutaneous infusion .continuous lispro) #117 mL carvedilol 6.25 mg tablet 6.25 mg PO BID 05/28/24 Unknown History albuterol sulfate 90 mcg/actuation 2 puff inhalation Q4H PRN PRN 07/26/24 Unknown Rx aerosol inhaler (Ventolin HFA) Wheezing ##1 Allergy/AdvReac Type Severity Reaction Status Date / Time No Known Allergies Allergy Verified 07/26/24 08:10 Family History Son Diabetes Diagnosed at 18 months; Mother Hypertension Grandfather CAD (coronary artery disease) Age 43 Father Diabetes Other Anxiety Depression Surgical History Presence of coronary angioplasty implant and graft (~06/15/21) History of tonsillectomy Social History adopted: No Smoking Status: Never smoker Electronic Cigarette Use: not used alcohol intake: current alcohol intake frequency: holidays/special occasions only Alcohol type: beer substance use type: does not use what type of physical activity do you participate in: walking frequency: 5-6 times per week seatbelt use: always do you feel safe at home: Yes ROS ROS ED Constitutional Constitutional ED: Reports chills, fever(s), sweats and other Details: Patient states last evening he was burning up . He was lying on top of blankets with fan running. Proximally 1 hour later he had shaking chills to the point his teeth were chattering. Eyes Eyes: Denies blurry vision, change in vision or diplopia ENT ENT ED: Reports rhinorrhea and sore throat; Denies ear pain Cardiovascular Cardiovascular: Reports palpitations and racing heartbeat; Denies chest pain, orthopnea or paroxysmal nocturnal dyspnea Respiratory/Chest Respiratory/Chest: Reports cough and sputum; Denies dyspnea, dyspnea on exertion, orthopnea or paroxysmal nocturnal dyspnea Gastrointestinal Gastrointestinal: Denies abdominal pain, nausea or vomiting Genitourinary Genitourinary ED: Reports other Details: Decreased urine output. ; Denies dysuria, hematuria or urinary frequency Musculoskeletal Musculoskeletal: Denies arthralgias or myalgias Integumentary Denies rash Neurologic Neurologic: Reports weakness; Denies headache(s) or paresthesias Endocrine Endocrinology: Reports polydipsia; Denies cold intolerance, heat intolerance or polyuria Hematologic/Lymphatic Hematologic/Lymphatic: Reports systems reviewed and no addt'l complaints, except as documented EXAM Physical Exam Const Vital Signs: 07/26/24 08:10 07/26/24 08:10 07/26/24 08:50 Temperature 98 F Temperature Source Temporal Pulse Rate 127 H 132 H Respiratory Rate 20 H Blood Pressure 169/89 H Blood Pressure Mean 115 Pulse Ox 95 95 Oxygen Delivery Method Room Air Room Air 07/26/24 08:50 07/26/24 09:55 07/26/24 10:05 Temperature Temperature Source Pulse Rate 105 H 115 H 64 Respiratory Rate 13 13 18 Blood Pressure 145/81 H Blood Pressure Mean 102 Pulse Ox 93 Oxygen Delivery Method Room Air Patient's vitals are marked for tachycardia at rest. His blood pressure is elevated. He does have a history of hypertension. Positive well nourished and well developed Constitutional Narrative: BMI is 33.6. General Appearance ED: well developed and NAD; Negative for cyanotic, diaphoretic or pallor HEENT Reports dry mucous membranes HEENT Narrative: Head is atraumatic normocephalic. Ears normal. Nares patent. Posterior pharynx unremarkable. Uvula is midline. There is no deviation with protrusion. Mouth ED: Yes dry mucous membranes Mouth: dry mucous membranes Eyes PERRL and EOMs intact bilaterally General Eye ED: Negative for pale conjunctiva or scleral icterus Neck no lymphadenopathy, supple and no JVD Chest Wall inspection of chest normal and palpation of chest normal Resp normal respiratory effort and No clear to auscultation bilaterally Resp Narrative: When asked to take a deep breath patient coughs and there is abnormal expiratory wheezing. Auscultation: rales bilateral base Cardio regular rhythm, S1 normal heart sound, S2 normal heart sound and no murmurs Rate: tachycardic GI normal to inspection, nondistended, normoactive bowel sounds, non-tender and non-distended; Negative for hepatosplenomegaly or no masses Back/Spine no CVA tenderness Back/Spine Narrative: Inspection of the back is normal. Extremity normal to inspection General Extremety ED: Negative for edema or tenderness General Extremity: Negative for edema Neuro oriented x3 and CN's II-XII intact bilaterally Sensorium / Orientation: alert Psych mental status grossly normal Skin no rashes or lesions noted, no wounds and skin turgor normal General Skin Exam: Negative for jaundice or pallor MDM MDM MDM Narrative Medical decision making narrative: Patient presents with tachycardia and respiratory symptoms. Since he did not have an x-ray 7 days ago we will obtain an x-ray. This may represent a viral infection. Will assess for COVID, RSV and influenza. CBC was obtained to assess white count and H&H. H&H to determine if he is anemic as cause of his shortness of breath. Since he reports intermittent wheezing and has abnormal breath sounds when he takes a deep breath will treat with albuterol x 3. Since he is diabetic steroids were not given. History & Record Review Additional record(s) reviewed:: Prior inpatient record (Patient was admitted June 2021 for non-ST elevation MS. He was noted to have an EF of 55% at that time. RVSP was 23 mmHg with no evidence of diastolic dysfunction. Recommendation per cardiology was risk factor modification.), Prior outpatient record (Office notes by Dr. Karel Mcpherson and Faby Veloz for endocrinology reviewed.) and Prior ED visit (No ER visits for review.) Lab Data Attestation: I reviewed the patient's lab results. Lab results narrative: CBC reveals white count of 5.1 with slight shift. There is no bandemia. H&H is normal. Indices are low, however. Rapid antigen for COVID, influenza and RSV was performed. Patient is positive for influenza A. Patient and spouse were informed of results. He was discharged with prescription for albuterol MDI. His blood sugar is elevated 209. Since he is a type I diabetic with elevated blood sugar will not place on prednisone since he is wheeze free. Labs: Laboratory Results - last 24 hr 07/26/24 08:45 WBC 5.1 RBC 5.42 Hgb 13.4 Hct 41.6 MCV 76.8 L MCH 24.7 L MCHC 32.2 RDW Std Deviation 39.4 RDW Coeff of [place] 14.5 Plt Count 240 MPV 9.1 Immature Gran % (Auto) 0.400 Neut % (Auto) 78.1 H Lymph % (Auto) 7.9 L Mower % (Auto) 13.0 H Eos % (Auto) 0.2 Baso % (Auto) 0.4 Absolute Neuts (auto) 4.0 Absolute Lymphs (auto) 0.40 L Nucleated RBC % 0 Sodium 136 Potassium 3.8 Chloride 105 Carbon Dioxide 23.0 Anion Gap 8 BUN 15 Creatinine 1.08 Estim Creat Clear Calc 96.05 Est GFR (MDRD) Af Amer 95 Est GFR (MDRD) Non-Af 78 BUN/Creatinine Ratio 13.9 Glucose 209 H Lactic Acid 1.2 Calcium 9.2 Total Bilirubin 0.60 AST 35 ALT 43 Alkaline Phosphatase 99 Total Protein 7.9 Albumin 3.7 Globulin 4.2 Albumin/Globulin Ratio 0.9 Discharge Plan Triage Chief Complaint: Palpitations ED Provider: Scout Rivas Dx/Rx/DC Orders Clinical Impression: Influenza A, Type 1 diabetes mellitus without complications, Atherosclerotic heart disease of [place] coronary artery without angina pectoris, Essential hypertension, HLD (hyperlipidemia), Presence of insulin pump, Acute bronchospasm, Sinus tachycardia seen on manager monitoring Instructions: ED Influenza (Adult) Prescriptions: New albuterol sulfate [Ventolin HFA] 90 mcg/actuation HFA aerosol inhaler 2 puff inhalation Q4H PRN PRN (Reason: Wheezing) Qty: 1 0RF No Action (DME) insulin syringe-needle U-100 [BD Insulin Syringe Ultra-Fine] 1 mL 31 gauge x 5/16 syringe See Dose Instructions .ROUTE .MEDSUPPLY Qty: 10 Rx Instructions: As directed (DME) OneTouch Ultra Blue Test Strip strip See Dose Instructions .ROUTE .MEDSUPPLY Qty: 10 Rx Instructions: As directed 6 times daily famotidine 20 mg tablet 20 mg PO BID (DME) Dexcom G6 Transmitter Device See Rx Instructions .ROUTE .MEDSUPPLY Qty: 1 2RF Rx Instructions: As directed carvedilol 6.25 mg tablet 6.25 mg PO BID Rx Instructions: must administer with a meal/food cetirizine [Zyrtec] 10 mg Tablet 10 mg PO DAILY aspirin 81 mg tablet,delayed release (DR/EC) See Rx Instructions .ROUTE .COMPLEX Qty: 90 3RF Dose Instruction: TAKE 1 TABLET DAILY Rx Instructions: TAKE 1 TABLET DAILY atorvastatin [Lipitor] 80 mg tablet 80 mg PO QHS Qty: 90 3RF (DME) Dexcom G6 Sensor Device See Rx Instructions .ROUTE .MEDSUPPLY Qty: 9 3RF Rx Instructions: As directed Humalog U-100 Insulin 100 unit/mL solution 130 unit continuous subcutaneous infusion .continuous Qty: 117 1RF Primary Care Provider: Patty Pettit Referrals: Patty Pettit MD [Primary Care Provider] - 3-5 Days if not improving Activity Restrictions/Additional Instructions: 2 puffs of inhaler every 2-4 hours while awake for the next 3 days. Then every 4-6 hours for the next 2 to 3 days then every 4-6 hours as needed. Print Language: [place] Disposition Disposition: Home, Self Care
[2024-07-26 09:28] LABS: ALB/GLOB Ratio 0.9 RATIO (0.9-2.4); AST(SGOT) 35 U/L (15-37); Alanine Aminotransfer ALT/SGPT 43 U/L (16-61); Albumin, Serum 3.7 g/dL (3.2-5.0); Alkaline Phosphatase 99 U/L (45-117); Anion Gap 8 (5-15); BUN 15 mg/dL (7-18); BUN/Creat Ratio 13.9 RATIO (10-20); Calcium,Total 9.2 mg/dL (8.5-10.1); Chloride 105 mmol/L (98-107); Creatinine, Serum 1.08 mg/dL (0.70-1.30); EST Glomerular Filtration Rate 78 mL/min (>60); Est Glom Filt Rate - Afr Amer 95 mL/min (>60); Estimated Creatinine Clearance 96.05 ml/min; Globulin 4.2 g/dL (2.2-4.2); Glucose 209 mg/dL (74-106); Lactic Acid 1.2 mmol/L (0.4-1.9); Potassium 3.8 mmol/L (3.5-5.1); Protein, Total 7.9 g/dL (6.4-8.2); Sodium Level 136 mmol/L (136-145)
[2024-07-26 09:55] VITALS: PULSE 115; RESP 13
[2024-07-26 10:05] VITALS: BP 145/81; PULSE 64; RESP 18; O2SAT 93
--- NOTE | 2024-07-26 10:11 | ED.RN ---
LAB CALLED PT FLU A POSITIVE
[2024-07-26 10:43] VITALS: BP 145/76; PULSE 114; RESP 20; TEMP 36.6; O2SAT 95
== END 2024-07-26 10:51 | disposition home or self-care (01) ==
PROVIDERS: Emergency Provider Emergency Medicine; PCP Family Medicine; Visit Provider Emergency Medicine
DX: J10.1 Influenza due to other identified influenza virus with other respiratory manifestations (principal); E10.9 Type 1 diabetes mellitus without complications; Z79.4 Long term (current) use of insulin; J98.01 Acute bronchospasm; R00.0 Tachycardia, unspecified; I10 Essential (primary) hypertension; E78.5 Hyperlipidemia, unspecified; E66.9 Obesity, unspecified; I25.2 Old myocardial infarction; I25.10 Atherosclerotic heart disease of native coronary artery without angina pectoris; Z95.1 Presence of aortocoronary bypass graft; Z96.41 Presence of insulin pump (external) (internal); Z68.33 Body mass index [BMI] 33.0-33.9, adult; Z79.82 Long term (current) use of aspirin; Z79.899 Other long term (current) drug therapy
CPT/HCPCS: 80053; 83605; 85025; 87631; 93005; 94640; 96374; 99283; A4216; J2405

== ENCOUNTER → 2024-09-10 | Outpatient (CLI) | payer BC, SELFPAY ==
[2021-08-14 08:27] VITALS: BMI 32.8
--- NOTE | 2024-09-10 14:00 | LES_PTH ---
PATIENT: JIMMY TORIBIO LOC: [facility] U#:[id number] AGE/SX: 43/M ROOM: RE09/10/[address]: Dr. Chang Zabala MD : 1980 BED: DIS: 09/10/2024 SPEC #: [id number] RECD: 09/10/24 15:09 STATUS: LINETTE GLADYS #: [id number] LISSA: 09/10/24 14:[address]: Chang Zabala DEPT: SURGICAL PATHOLOGY RECD BY: Jorden Meyer ENTERED: 09/10/24 15:09 SP TYPE: Lesion OTHR DR: Dr. Patty Pettit MD Tissues: Skin of anus Procedures: Surgery Specimen Level IV HEADER OPERATION: Excision of rectal skin tag PRE-OP DIAGNOSIS: Rectal skin tag TISSUE SUBMITTED: Skin tag MICROSCOPIC DIAGNOSIS Skin, rectal skin tag, biopsy: * Polypoid skin with intradermal melanocytic nevus, benign. MICROSCOPIC DESCRIPTION Slides are reviewed. GROSS DESCRIPTION Received formalin labeled, Jimmy Toribio, and designated rectal skin tag, is a pink-hanna, slightly, wrinkled, ovoid, unoriented skin fragment measuring 0.6 x 0.5 x 0.5 cm. The margin is inked black, the specimen is bisected and totally submitted in one cassette.JK. 09/11/2024 CPT:08235
== END | disposition home or self-care (01) ==
LOC: LABSPEC 14:57
PROVIDERS: PCP Family Medicine; Referring Provider Surgery; Visit Provider Surgery
DX: D22.5 Melanocytic nevi of trunk (principal)
CPT/HCPCS: 88305

== ENCOUNTER → 2024-11-19 | Outpatient (CLI) | payer BC, SELFPAY ==
[2021-08-14 08:27] VITALS: BMI 32.8
--- NOTE | 2024-11-19 13:17 | STRESSREP_ITS ---
Stress Test Report Exercise myocardial perfusion stress test. 44-year-old male with a history of chest pain Stress protocol: Resting EKG demonstrates normal sinus rhythm with a rate of 92 bpm resting blood pressure is 142/88 ] mmHg. The patient exercised according to the regular Jomar protocol for a total duration of 6 minutes attaining a maximum heart rate of 162 bpm which was 93% of maximum predicted heart rate; the maximum workload was 7 metabolic equivalents. At rest there were no ST or T wave changes noted to suggest ischemia and at peak exercise upsloping ST changes only were noted which did not meet the criteria for ischemia. No clinical angina was noted the test was terminated due to the target heart rate being achieved/fatigue. The peak b lood pressure was 198/78 mmHg. Rate-pressure product was 31,000. Myocardial perfusion protocol. 14.3 mCi of technetium 99m sestamibi was injected at rest. The patient exercised according to regular Jomar protocol for total duration of 6 minutes and at peak exercise 44.7 mCi of technetium 99m sestamibi was injected stress images were obtained stress and rest images were reconstructed in comparing the short axis vertical long and horizontal long axis. Gated images were also obtained. Perfusion SPECT analysis: Review of the stress images demonstrate normal uptake of tracer noted in all areas of the myocardium. The resting images similarly demonstrate normal uptake of tracer noted in all areas of the myocardium. No areas of reversibility are noted to suggest ischemia no previous infarct was noted. Gated SPECT analysis: The gated ejection fraction is 63%. Conclusion: Normal exercise myocardial perfusion stress test at a moderate workload Preserved ejection fraction.
== END | disposition home or self-care (01) ==
LOC: CVS 06:04
PROVIDERS: PCP Family Medicine; Referring Provider Nurse Practitioner Family; Visit Provider Nurse Practitioner Family
DX: Z95.5 Presence of coronary angioplasty implant and graft (principal)
CPT/HCPCS: 78452; 93017; A9500

== ENCOUNTER 2024-11-20 09:20 | Day surgery (SDC) | payer BC, SELFPAY ==
[2021-08-14 08:27] VITALS: BMI 32.8
--- NOTE | 2024-11-06 12:10 | PAT.ANE_ITS ---
Pre-Assessment Diagnosis/Proposed Procedure Planned Operative Procedure(s): Fistulectomy,Anal- EUA with possible seton placement Anesthesia History Anesthesia History - superintendent division: Anesthesia History - superintendent division Hx Hospitalization No 11/06/24 11:17 Any Problems With Anesthesia No 11/06/24 11:17 Cholinesterase deficiency No 11/06/24 11:17 You/Your Family Experience No 11/06/24 11:17 fever (hyperthermia) with Relationship Recent Exposure to Contagious Disease Does patient have nerve No 11/06/24 11:17 stimulator Patient instructed to have device shut off --Does patient have Pacemaker or ICD? When Was Last Pacemaker Check QUESTION #4 FULL TEXT: You/Your Family Experience fever (hyperthermia) with Anesthesia Last Oral Intake Last Oral intake: Last Oral Intake NPO since Meds taken in AM with sips of water? Meds patient instructed to take am of surgery PONV PONV - superintendent division: PONV - superintendent division Female No 11/06/24 11:17 HX of Motion Sickness No 11/06/24 11:17 HX of N/V After Surgery No 11/06/24 11:17 Non-Smoker Yes 11/06/24 11:17 Duration of Surgery greater No 11/06/24 11:17 than 60 minutes Number of Risk Factors 1 11/06/24 11:17 PONV Score Low Risk 11/06/24 11:17 Height & Weight Height & Weight: Anesthesia: Height & Weight Height 5 ft 7 in 11/04/24 07:59 Respiratory Assessment Respiratory Assessment - superintendent division: Respiratory Tract Infection Hx - superintendent division Hx Respiratory Tract Infection No 11/06/24 11:17 STOP Sleep Apnea STOP Sleep Apnea - superintendent division: STOP Sleep Apnea - superintendent division Hx Hypertension No 11/06/24 11:17 Hx Sleep Apnea No 11/06/24 11:17 CPAP BIPAP Do you snore loudly (louder Yes 11/06/24 11:17 than talking or can be heard Do you often feel tired/ No 11/06/24 11:17 fatigued/ sleepy during daytime? Has anyone observed you stop No 11/06/24 11:17 breathing during sleep? STOP Results Negative 11/06/24 11:17 QUESTION #5 FULL TEXT : Do you snore loudly (louder than talking or can be heard through closed doors)? Tobacco Use History Tobacco Use History - superintendent division: Tobacco Use History - superintendent division Tobacco Use Smoking Status Never smoker 11/06/24 11:17 Hx Tobacco Use No 11/06/24 11:17 Years Smoking Packs Smoked per Day Smoking Cessation Date was within the last 15 years Hx Smoking Cessation Date Hx Smoking Cessation Counseling Hematologic Medial History Hematologic Hx - superintendent division: Hematologic Medical Hx - consumer loan processor Hx of Blood Transfusion No 11/06/24 11:17 Hx of Transfusion in last 3 No 11/06/24 11:17 Months Date of Last Transfusion (if within last 3 months) Ever experience any problems No 11/06/24 11:17 with transfusion(s)? Specify any problems Hx of Preganancy in last 3 N/A 11/06/24 11:17 Months Nurse Filling Out Transfusion JZOLLINGE 11/06/24 11:17 & Questions: Date: 11/06/24 11/06/24 11:17 Time: 11:19 11/06/24 11:17 Patient unable to answer at this time (ie. confused, unrespo /Reproduction History /Reproductive History - superintendent division: /Reproductive Hx- superintendent division Hx Now No 11/06/24 11:17 Gestational Age (in weeks): EDC: Hx Hx Para Hx Section SAB No 11/06/24 11:17 [facility] Medical History (Updated 11/06/24 @ 11:16 by Yanique Stark) Wears glasses Alcohol use Gastric reflux Non-smoker Perianal abscess Anal skin tag Essential hypertension Obesity Atherosclerotic heart disease of [place] coronary artery without angina pectoris Presence of stent in coronary artery (~06/15/21) HTN (hypertension) Non-ST elevated myocardial infarction (non-STEMI) Presence of insulin pump Hives Seasonal allergies Diabetes mellitus type 1, uncontrolled, without complications Type 1 diabetes mellitus without complications Home Medications ?Medication ?Instructions ?Recorded ?Last Taken ?Type blood sugar diagnostic (OneTouch #10 ea 06/18/18 Unkno wn History Ultra Blue Test Strip) insulin syringe-needle U-100 1 mL #10 ea 06/18/18 Unkn own History 31 gauge x 5/16 (BD Insulin Syringe Ultra-Fine) famotidine 20 mg tablet 20 mg PO BID GERD 09/01/20 1 08/15/20 07:00 History cetirizine 10 mg tablet (Zyrtec) 10 mg PO DAILY allerg ies 12/08/21 12/07/21 History aspirin 81 mg tablet,delayed See Rx Instructions .Rout e 07/09/23 Unknown Rx release .COMPLEX #90 tabs atorvastatin 80 mg tablet (Lipitor) 80 mg PO QHS #90 t abs 07/09/23 Unknown Rx carvedilol 6.25 mg tablet 6.25 mg PO BID 05/28/24 Unkn own History Dexcom G6 Sensor (blood-glucose #9 ea 08/25/24 Unknown Rx sensor) blood-glucose transmitter (Dexcom #1 ea 08/25/24 Unkno wn Rx G6 Transmitter device) Humalog U-100 Insulin 100 unit/mL 130 unit (1.3 mL) co ntinuous 09/03/24 Unknown Rx subcutaneous solution (insulin subcutaneous infusion . continuous lispro) #117 mL Allergy/AdvReac Type Severity Reaction Status Date / Time No Known Allergies Allergy Verified 11/06/24 11:10 Family History Son Diabetes Diagnosed at 18 months; Mother Hypertension Grandfather CAD (coronary artery disease) Age 43 Father Diabetes Other Anxiety Depression Surgical History Presence of coronary angioplasty implant and graft (~06/15/21) History of tonsillectomy Social History adopted: No Smoking Status: Never smoker Electronic Cigarette Use: not used alcohol intake: current alcohol intake frequency: holidays/special occasions only Alcohol type: beer substance use type: does not use what type of physical activity do you participate in: walking frequency: 5-6 times per week seatbelt use: always do you feel safe at home: Yes Audit: Pertinent Findings Pertinent Findings EKG Perinent findings: 07/26/2024. Sinus tachycardia 120 bpm. Otherwise normal EKG. Echo (EF%) pertinent findings: 06/14/2021. EF 55%. Heart catheterization pertinent findings: Cardiology 04/14/2024. Coronary artery disease. Stent in LAD. 06/15/2021. Recommend that he undergo stress testing since it has been over 3 years. Hypertension. Continue current medications. Recommendation Anesthesia Recommendation Anesthesia recommendation: F/U recommended
--- NOTE | 2024-11-19 14:28 | PAT.ANE_ITS ---
Pre-Assessment Diagnosis/Proposed Procedure Planned Operative Procedure(s): Fistulectomy,Anal- EUA with possible seton placement Anesthesia History Anesthesia History - manager environmental health and safety: Anesthesia History - manager environmental health and safety Hx Hospitalization No 11/06/24 11:17 Any Problems With Anesthesia No 11/06/24 11:17 Cholinesterase deficiency No 11/06/24 11:17 You/Your Family Experience No 11/06/24 11:17 fever (hyperthermia) with Relationship Recent Exposure to Contagious Disease Does patient have nerve No 11/06/24 11:17 stimulator Patient instructed to have device shut off --Does patient have Pacemaker or ICD? When Was Last Pacemaker Check QUESTION #4 FULL TEXT: You/Your Family Experience fever (hyperthermia) with Anesthesia Last Oral Intake Last Oral intake: Last Oral Intake NPO since Meds taken in AM with sips of water? Meds patient instructed to take am of surgery PONV PONV - manager environmental health and safety: PONV - manager environmental health and safety Female No 11/06/24 11:17 HX of Motion Sickness No 11/06/24 11:17 HX of N/V After Surgery No 11/06/24 11:17 Non-Smoker Yes 11/06/24 11:17 Duration of Surgery greater No 11/06/24 11:17 than 60 minutes Number of Risk Factors 1 11/06/24 11:17 PONV Score Low Risk 11/06/24 11:17 Height & Weight Height & Weight: Anesthesia: Height & Weight Height 5 ft 7 in 11/04/24 07:59 Respiratory Assessment Respiratory Assessment - manager environmental health and safety: Respiratory Tract Infection Hx - manager environmental health and safety Hx Respiratory Tract Infection No 11/06/24 11:17 STOP Sleep Apnea STOP Sleep Apnea - manager environmental health and safety: STOP Sleep Apnea - manager environmental health and safety Hx Hypertension No 11/06/24 11:17 Hx Sleep Apnea No 11/06/24 11:17 CPAP BIPAP Do you snore loudly (louder Yes 11/06/24 11:17 than talking or can be heard Do you often feel tired/ No 11/06/24 11:17 fatigued/ sleepy during daytime? Has anyone observed you stop No 11/06/24 11:17 breathing during sleep? STOP Results Negative 11/06/24 11:17 QUESTION #5 FULL TEXT : Do you snore loudly (louder than talking or can be heard through closed doors)? Tobacco Use History Tobacco Use History - manager environmental health and safety: Tobacco Use History - manager environmental health and safety Tobacco Use Smoking Status Never smoker 11/06/24 11:17 Hx Tobacco Use No 11/06/24 11:17 Years Smoking Packs Smoked per Day Smoking Cessation Date was within the last 15 years Hx Smoking Cessation Date Hx Smoking Cessation Counseling Hematologic Medial History Hematologic Hx - manager environmental health and safety: Hematologic Medical Hx - executive vp Hx of Blood Transfusion No 11/06/24 11:17 Hx of Transfusion in last 3 No 11/06/24 11:17 Months Date of Last Transfusion (if within last 3 months) Ever experience any problems No 11/06/24 11:17 with transfusion(s)? Specify any problems Hx of Preganancy in last 3 N/A 11/06/24 11:17 Months Nurse Filling Out Transfusion JZOLLINGE 11/06/24 11:17 & Questions: Date: 11/06/24 11/06/24 11:17 Time: 11:19 11/06/24 11:17 Patient unable to answer at this time (ie. confused, unrespo /Reproduction History /Reproductive History - manager environmental health and safety: /Reproductive Hx- manager environmental health and safety Hx Now No 11/06/24 11:17 Gestational Age (in weeks): EDC: Hx Hx Para Hx Section SAB No 11/06/24 11:17 Active Medications Active Medications: Current Medications Generic Name Dose Route Start Last Admin Trade Name Freq PRN Reason Stop Dose Admin Cefotetan Disodium 2 gm/ 100 mls @ 200 mls/hr 11/20/24 11:00 Sodium Chloride IV 11/20/24 11:29 INTRAOP ONE PFS Medical History Wears glasses Alcohol use Gastric reflux Non-smoker Perianal abscess Anal skin tag Essential hypertension Obesity Atherosclerotic heart disease of [place] coronary artery without angina pectoris Presence of stent in coronary artery (~06/15/21) HTN (hypertension) Non-ST elevated myocardial infarction (non-STEMI) Presence of insulin pump Hives Seasonal allergies Diabetes mellitus type 1, uncontrolled, without complications Type 1 diabetes mellitus without complications Home Medications ?Medication ?Instructions ?Recorded ?Last Taken ?Type blood sugar diagnostic (OneTouch #10 ea 06/18/18 Unkno wn History Ultra Blue Test Strip) insulin syringe-needle U-100 1 mL #10 ea 06/18/18 Unkn own History 31 gauge x 5/16 (BD Insulin Syringe Ultra-Fine) famotidine 20 mg tablet 20 mg PO BID GERD 09/01/20 1 08/15/20 07:00 History cetirizine 10 mg tablet (Zyrtec) 10 mg PO DAILY allerg ies 06/14/21 06/13/21 History aspirin 81 mg tablet,delayed See Rx Instructions .Rout e 07/09/23 Unknown Rx release .COMPLEX #90 tabs atorvastatin 80 mg tablet (Lipitor) 80 mg PO QHS #90 t abs 07/09/23 Unknown Rx carvedilol 6.25 mg tablet 6.25 mg PO BID 05/28/24 Unkn own History Dexcom G6 Sensor (blood-glucose #9 ea 08/25/24 Unknown Rx sensor) blood-glucose transmitter (Dexcom #1 ea 08/25/24 Unkno wn Rx G6 Transmitter device) Humalog U-100 Insulin 100 unit/mL 130 unit (1.3 mL) co ntinuous 09/03/24 Unknown Rx subcutaneous solution (insulin subcutaneous infusion . continuous lispro) #117 mL Allergy/AdvReac Type Severity Reaction Status Date / Time No Known Allergies Allergy Verified 11/06/24 11:10 Family History Son Diabetes Diagnosed at 18 months; Mother Hypertension Grandfather CAD (coronary artery disease) Age 43 Father Diabetes Other Anxiety Depression Surgical History Presence of coronary angioplasty implant and graft (~06/15/21) History of tonsillectomy Social History adopted: No Smoking Status: Never smoker Electronic Cigarette Use: not used alcohol intake: current alcohol intake frequency: holidays/special occasions only Alcohol type: beer substance use type: does not use what type of physical activity do you participate in: walking frequency: 5-6 times per week seatbelt use: always do you feel safe at home: Yes Prior Cardiac Testing/Procedures Prior Cardiac Testing/Procedures: Stress Test (11/19/24 Normal exercise m yocardial perfusion stress test at a moderate workload Preserved ejection fraction.) and CTA Chest/CTA Coronary Angioplasty (S/P Mid LAD stent in 2020 for 85% occlusion found during NSTEMI) Addt'l Information Additional Findings: EKG NSR Audit: Pertinent Findings HISTORY of Pertinent Findings History of Pertinent Findings: EKG Pertinent Findings EKG Perinent findings 07/26/2024. Sinus 11/06/24 12:14 tachycardia 120 bpm. Otherwise normal EKG. Echo Pertinent Findings Echo (EF%) pertinent findings 06/14/2021. EF 55%. 11/06/24 12:14 Heart Catheterization Pertinent Findings Heart catheterization Cardiology 04/14/2024. 11/06/24 12:14 pertinent findings Coronary artery disease. Stent in LAD. 06/15/2021. Recommend that he undergo stress testing since it has been over 3 years. Hypertension. Continue current medications. Recommendation Anesthesia Recommendation Anesthesia recommendation: OPTIMIZED for anesthesia
[2024-11-20] VITALS (9 sets, daily range): BP systolic 138–157; BP diastolic 76–101; PULSE 74–100; RESP 16–18; TEMP 36.1–36.8; O2SAT 97–100; BMI 33.7
--- NOTE | 2024-11-20 10:00 | PRE.ANES_ITS ---
ASA Classification* ASA Classification ASA Classification: 2 Assessment & Plan Anesthesia* Anesthesia Assessment Anesthesia Assessment: Discussed sedation and/or anesthesia options, risks, benefits, and alternatives with patient/parents/legal guardian/POA. Questions invited. The patient/parents/legal guardian/POA seems to understand and agrees to proceed with anesthesia plan. Reviewed the physical assessment, medical history, allergy history and patient home medications list prior to surgery/procedure/anesthetic and documented any changes. Performed airway and anesthesia risk assessments. Anesthesia Type Anesthesia Type: General Anesthesia Focused Assessment* Temperature: 98.2 F Pulse Rate: 76 Blood Pressure: 145/76 Respiratory Rate: 16 Pulse Ox: 98 Airway Assessment Mouth opens: >3 cm Mallampati Score: II Focused Labs Anesthesia Preop lab: CBC WBC 5.1 K/mm3 (4.4-11.0) 07/26/24 08:45 07/26/24 RBC 5.42 M/mm3 (4.6-6.2) 07/26/24 08:45 07/26/24 Hgb 13.4 g/dL (13.0-16.5) 07/26/24 08:45 07/26/24 Hct 41.6 % (40-54) 07/26/24 08:45 07/26/24 Plt Count 240 K/mm3 (150-450) 07/26/24 08:45 07/26/24 CHEMISTRY Potassium 3.8 mmol/L (3.5-5.1) 07/26/24 08:45 07/26/24 Sodium 136 mmol/L (136-145) 07/26/24 08:45 07/26/24 BUN 15 mg/dL (7-18) 07/26/24 08:45 07/26/24 Creatinine 1.08 mg/dL (0.70-1.30) 07/26/24 08:45 07/26/24 Glucose 209 mg/dL (74-106) H 07/26/24 08:45 07/26/24 TSH 2.14 uIU/mL (0.358-3.74) 02/09/23 07:37 COAG PT 12.2 SECONDS (11.7-14.9) 06/14/21 11:45 12/08/ 21 Pre-Assessment Diagnosis/Proposed Procedure Planned Operative Procedure(s): Fistulectomy,Anal- EUA with possible seton placement Anesthesia History Anesthesia History - academic support director: Anesthesia History - academic support director Hx Hospitalization No 11/06/24 11:17 Any Problems With Anesthesia No 11/06/24 11:17 Cholinesterase deficiency No 11/06/24 11:17 You/Your Family Experience No 11/06/24 11:17 fever (hyperthermia) with Relationship Recent Exposure to Contagious No 11/20/24 09:44 Disease Does patient have nerve No 11/06/24 11:17 stimulator Patient instructed to have device shut off --Does patient have Pacemaker No 11/20/24 09:44 or ICD? When Was Last Pacemaker Check QUESTION #4 FULL TEXT: You/Your Family Experience fever (hyperthermia) with Anesthesia Last Oral Intake Last Oral intake: Last Oral Intake NPO since 04:45 11/20/24 09:44 Meds taken in AM with sips of No 11/20/24 09:44 water? Meds patient instructed to take am of surgery PONV PONV - academic support director: PONV - academic support director Female No 11/06/24 11:17 HX of Motion Sickness No 11/06/24 11:17 HX of N/V After Surgery No 11/06/24 11:17 Non-Smoker Yes 11/06/24 11:17 Duration of Surgery greater No 11/06/24 11:17 than 60 minutes Number of Risk Factors 1 11/06/24 11:17 PONV Score Low Risk 11/06/24 11:17 Height & Weight Height & Weight: Anesthesia: Height & Weight Height 5 ft 6 in 11/20/24 09:44 Weight: 95 kg 11/20/24 09:44 Body Mass Index (BMI) 33.7 11/20/24 09:44 Respiratory Assessment Respiratory Assessment - academic support director: Respiratory Tract Infection Hx - academic support director Hx Respiratory Tract Infection No 11/06/24 11:17 STOP Sleep Apnea STOP Sleep Apnea - academic support director: STOP Sleep Apnea - academic support director Hx Hypertension No 11/06/24 11:17 Hx Sleep Apnea No 11/06/24 11:17 CPAP BIPAP Do you snore loudly (louder Yes 11/06/24 11:17 than talking or can be heard Do you often feel tired/ No 11/06/24 11:17 fatigued/ sleepy during daytime? Has anyone observed you stop No 11/06/24 11:17 breathing during sleep? STOP Results Negative 11/06/24 11:17 QUESTION #5 FULL TEXT : Do you snore loudly (louder than talking or can be heard through closed doors)? 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 Specify any problems Hx of Preganancy in last 3 N/A 11/06/24 11:17 Months Nurse Filling Out Transfusion JZOLLINGE 11/06/24 11:17 & Questions: Date: 11/06/24 11/06/24 11:17 Time: 11:19 11/06/24 11:17 Patient unable to answer at this time (ie. confused, unrespo /Reproduction History /Reproductive History - academic support director: /Reproductive Hx- academic support director Hx Now No 11/06/24 11:17 Gestational Age (in weeks): EDC: Hx Hx Para Hx Section SAB No 11/06/24 11:17 Active Medications Active Medications: Current Medications Generic Name Dose Route Start Last Admin Trade Name Freq PRN Reason Stop Dose Admin Cefotetan Disodium 2 gm/ 100 mls @ 200 mls/hr 11/20/24 11:00 Sodium Chloride IV 11/20/24 11:29 INTRAOP ONE Lactated Ringer's 1,000 mls @ 15 mls/hr 11/20/24 09:45 IV .Q48H BARBARA PFSH Medical History Wears glasses Alcohol use Gastric reflux Non-smoker Perianal abscess Anal skin tag Essential hypertension Obesity Atherosclerotic heart disease of [place] coronary artery without angina pectoris Presence of stent in coronary artery (~06/15/21) HTN (hypertension) Non-ST elevated myocardial infarction (non-STEMI) Presence of insulin pump Hives Seasonal allergies Diabetes mellitus type 1, uncontrolled, without complications Type 1 diabetes mellitus without complications Home Medications ?Medication ?Instructions ?Recorded ?Last Taken ?Type blood sugar diagnostic (OneTouch #10 ea 06/18/18 Unkno wn History Ultra Blue Test Strip) insulin syringe-needle U-100 1 mL #10 ea 06/18/18 Unkn own History 31 gauge x 5/16 (BD Insulin Syringe Ultra-Fine) famotidine 20 mg tablet 20 mg PO BID GERD 09/01/20 1 08/15/20 07:00 History cetirizine 10 mg tablet (Zyrtec) 10 mg PO DAILY allerg ies 06/14/21 06/13/21 History aspirin 81 mg tablet,delayed See Rx Instructions .Rout e 07/09/23 11/13/24 Rx release .COMPLEX #90 tabs atorvastatin 80 mg tablet (Lipitor) 80 mg PO QHS #90 t abs 07/09/23 Unknown Rx carvedilol 6.25 mg tablet 6.25 mg PO BID 05/28/24 Unkn own History Dexcom G6 Sensor (blood-glucose #9 ea 08/25/24 Unknown Rx sensor) blood-glucose transmitter (Dexcom #1 ea 08/25/24 Unkno wn Rx G6 Transmitter device) Humalog U-100 Insulin 100 unit/mL 130 unit (1.3 mL) co ntinuous 09/03/24 Unknown Rx subcutaneous solution (insulin subcutaneous infusion . continuous lispro) #117 mL Allergy/AdvReac Type Severity Reaction Status Date / Time No Known Allergies Allergy Verified 11/20/24 09:43 Family History Son Diabetes Diagnosed at 18 months; Mother Hypertension Grandfather CAD (coronary artery disease) Age 43 Father Diabetes Other Anxiety Depression Surgical History Presence of coronary angioplasty implant and graft (~06/15/21) History of tonsillectomy Social History adopted: No Smoking Status: Never smoker Electronic Cigarette Use: not used alcohol intake: current alcohol intake frequency: holidays/special occasions only Alcohol type: beer substance use type: does not use what type of physical activity do you participate in: walking frequency: 5-6 times per week seatbelt use: always do you feel safe at home: Yes Review of Systems (Anesthesia) ROS Narrative System reviewed and no additional complaints, except as documented.
[2024-11-20] MEDS: Lactated Ringers 1,000 ML 15 ML IV (10:06)
--- NOTE | 2024-11-20 10:44 | HP.PCM_ITS ---
History and Physical Date of Admission: 11/20/24 Intake Vital Signs 09/29/2506:51 11/04/2506:59 Height 5 ft 7 in 5 ft 7 in Weight: 218 lb 218 lb 2 oz BMI 34.1 34.1 BP 143/90 H 152/93 H Blood Pressure Location Lt brachial Rt brachial Position Sitting Sitting Respiration 17 Pulse 106 H 92 Pulse Source Monitor Monitor Temp 97.4 F L Temp Source Temporal Pulse Oximetry (%) 99 97 Oxygen Delivery Method room air room air Intake Visit Reasons: MED CHECK Chief Complaint: med check Is patient in pain?: Yes Allergies No Known Allergies Allergy (Verified 11/04/24 07:59) Medications ?Medication ?Instructions ?Recorded ?Confirmed ?Type blood sugar diagnostic (OneTouch #10 ea 06/18/18 10/29/24 History Ultra Blue Test Strip) insulin syringe-needle U-100 1 mL #10 ea 06/18/18 10/29/24 History 31 gauge x 5/16 (BD Insulin Syringe Ultra-Fine) famotidine 20 mg tablet 20 mg PO BID GERD 09/01/20 10/29/24 Hist ory cetirizine 10 mg tablet (Zyrtec) 10 mg PO DAILY allergies 06/14/21 History aspirin 81 mg tablet,delayed See Rx Instructions .Route 07/09/23 10/29/24 Rx release .COMPLEX #90 tabs atorvastatin 80 mg tablet (Lipitor) 80 mg PO QHS #90 tabs 07/09/23 10/29/24 Rx carvedilol 6.25 mg tablet 6.25 mg PO BID 05/28/24 10/29/24 History albuterol sulfate 90 mcg/actuation 2 puff inhalation Q4H PRN PRN 07/26/24 10/29/24 Rx aerosol inhaler (Ventolin HFA) Wheezing ##1 Dexcom G6 Sensor (blood-glucose #9 ea 08/25/24 10/29/24 Rx sensor) blood-glucose transmitter (Dexcom #1 ea 08/25/24 10/29/24 Rx G6 Transmitter device) Humalog U-100 Insulin 100 unit/mL 130 unit (1.3 mL) continuous 09/03/24 Rx subcutaneous solution (insulin subcutaneous infusion .continuous lispro) #117 mL loperamide 2 mg capsule 2 mg PO Q6H PRN 09/04/24 10/29/24 Histor y (Anti-Diarrheal (loperamide)) sulfamethoxazole 800 2 tab PO BID 10/29/24 10/29/24 History mg-trimethoprim 160 mg tablet PFSH Medical History Perianal abscess Anal skin tag Essential hypertension Obesity Atherosclerotic heart disease of [place] coronary artery without angina pectoris Presence of stent in coronary artery (~06/15/21) HTN (hypertension) Non-ST elevated myocardial infarction (non-STEMI) Presence of insulin pump Hives Seasonal allergies Diabetes mellitus type 1, uncontrolled, without complications Type 1 diabetes mellitus without complications Surgical History Presence of coronary angioplasty implant and graft (~06/15/21) History of tonsillectomy Family History Son Diabetes Diagnosed at 18 months;Mother HypertensionGrandfather CAD (coronary artery disease) Age 43Father DiabetesOther Anxiety Depression Social History adopted: No Smoking Status: Never smoker Electronic Cigarette Use: not used alcohol intake: current alcohol intake frequency: holidays/special occasions only Alcohol type: beer substance use type: does not use what type of physical activity do you participate in: walking frequency: 5-6 times per week seatbelt use: always do you feel safe at home: Yes HPI HPI HPI: Patient is a 43-year-old male following up for perianal abscess. The patient reports that the drainage has become nonpurulent more bloody but it has decreased but is still present. It is still painful. ROS General General: No weight change, appetite, fatigue, colon cancer, breast cancer or weakness HEENT HEENT: No difficulty swallowing, eye injury, eye surgery, swollen glands or hoarseness Endo Endocrine: Yes diabetes mellitus; No thyroid disease, thyroid cancer, Hair loss, heat intolerance or cold intolerance Skin Skin: No rash or changing moles Musc Musculoskeletal: No back problems, arthritis, rheumatoid arthritis, gout or joint pain Cardio Cardiovascular: Yes heart disease, high blood pressure, heart attack and heart stent; No murmur, pacemaker, atrial fibrillation, palpitations, shortness of breath with exertion or chest pain Psych Psychiatric: No depression, anxiety or hearing voices Resp Respiratory: No shortness of breath, No sleep apnea, No cough, No COPD, No asthma, No emphysema and No wheezing Gastro Gastrointestinal: No abdominal pain, No nausea or vomiting, Yes diarrhea, No constipation, No blood in stool, No acid reflux, No hemorrhoids, No ulcers, No gallbladder problem and No black,tarry stools Jed Hematologic: Yes blood thinners, No blood disorders, No bleeding, No anemia and No blood clots Additional Details: 81 mg aspirin Neuro Neurologic: No numbness, No tingling and No weakness Exam Const General: cooperative Orientation: alert and oriented x3 HENMT Head: normal to inspection Neck Neck: normal visual inspection and full ROM Chest Chest palpation & inspection: normal inspection of the chest Resp Effort & Inspection: normal respiratory effort Auscultation: clear to auscultation bilaterally Cardio Rate: regular rate Rhythm: regular rhythm GI Inspection: non-distended Palpation: soft and nontender Skin General: no rashes or lesions noted Neuro General: patient alert and patient oriented x3 Extrem General: full ROM Psych Appearance: grossly normal Mental Status: mental status grossly normal Assessment and Plan Assessment and Plan (1) Perianal abscess: Status: Acute Plan: When I palpated the area the patient is still having some drainage. I recommended exam under anesthesia with drainage of the area and checking for fistula. If there is a fistula present I will place a seton suture I discussed this with him in detail. I discussed the risks including but not limited to bleeding, infection. He will hold his aspirin for 5 days. Chang Zabala MD Pager: [facility] [address] [place] [address], [address] [place] [address] Office: I have examined the patient and the H&P has been reviewed. There are no clinical changes since date of exam.
[2024-11-20] MEDS: Cefotetan 2 GM in 0.9% Normal Saline (100mL MB+) 100 ML IV (10:57)
[2024-11-20 11:20] LABS: Bedside Glucose 237 mg/dL (74-106)
[2024-11-20] MEDS: Bupivacaine Mpf 0.5% 30 ML VIAL (11:29)
[2024-11-20] MEDS: Dibucaine 30 GM Tube 1 APPLIC (11:29)
--- NOTE | 2024-11-20 11:32 | PCM.OPRPT ---
Operative Report (Standard) Operative Information Date of Procedure: 11/20/24 Pre-Operative Diagnosis: Perirectal abscess Post-Operative Diagnosis: Perirectal abscess with fistula Surgery/Procedure Performed: Exam under anesthesia with placement of seton suture assistant executive housekeeper: Yes Sow Farm Technician: Ever Hensley Tasks completed by elementary assistant principal: Retracting Type of Anesthesia: General/Regional RN Documented Start/Stop Times: Operation Date: 11/20/24 11:00 Case Time Into Pre-Op 11/20/24 09:26 Out of Pre-Op 11/20/24 10:53 Anesthesia Start 11/20/24 10:57 Into Room 11/20/24 10:57 Procedure Start 11/20/24 11:20 Procedure End 11/20/24 11:30 Procedure Start Time: 11:20 Procedure Stop Time: 11:30 Select all DRAINS/GRAFTS/IMPLANTS that apply: Tissue Tissue details: vessel loop as seton suture Estimated Blood Loss: 5 Specimen collected: No Description of surgery: Patient was brought back to the operating room and general anesthesia was used. Patient was placed in prone jackknife position. The buttocks were taped open and the area was prepped and draped. A lacrimal duct probe was used to follow the draining area to the rectum. There was a fistula opening posteriorly. It was outside of the sphincter so a seton was selected. A red vessel loop was placed into the rectum and grasped and brought through the fistula and tied to itself using a 3-0 silk suture. There was also a small area on the left that was communicating with it and this was opened with a scalpel and electrocautery was used to maintain hemostasis. This area was left open to drain. Next local anesthetic was injected into all areas of the anus. Patient was then awoken and brought to PACU in stable condition Surgical Findings: Posterior fistula Complications Complications: No Admit VTE Documentation VTE Mechan Device Prophylaxis: SCD's
--- NOTE | 2024-11-20 11:37 | DCINST_ITS ---
Discharge Instructions Diet Discharge Diet: Light diet - advance as tolerated Activity Discharge Activity: Return to Normal Activity and May Not Drive (while you are taking narcotic pain medications. Do not drive, work with heavy equipment or sign legal documents for 24 hours after your surgery.) May resume sexual activity in: No Restrictions Additional Activity Instructions:: Be aware that pain medications may cause nausea. You should typically eat light foods as you take your pain medications. Pain medications may also cause constipation. If you have difficulty with this please discuss with your doctor. Alternate ibuprofen and Tylenol for pain control, oxycodone for any breakthrough pain take stool softeners or laxatives with pain medications. Resume aspirin Saturday Dressing / Incision Call your doctor if your incision/area has: Continuous Slow Oozing, Sudden Increased Bleeding, Increased Pain/ Swelling, Increased Redness, Foul Smelling Discharge and Swelling at the incision site Call your doctor if you observe: Fever of 101 or Higher and Uncontrolled pain Cleanse incision/area with: Soap & Water Additional Dressing/Incision Instructions:: Leave the operative bandage on for [address] dibucaine ointment on the perianal area as needed. Sitz baths twice daily and after bowel movements. Follow Up Care Please Follow Up With: Chang Zabala MD When: Please call to schedule 1 week follow up appointment. [phone] Test Results: Test results from this visit will be discussed in further detail at your follow- up appointment, if applicable. Discharge Plan Admission Attending Provider: Chang Zabala Primary Care Provider: Deepak Mason Instructions Print Language: Citizen Of [place] Discharge Orders/Prescriptions Prescriptions: New oxycodone 5 mg Tablet 5 - 10 mg PO Q4H PRN PRN (Reason: Pain Score 4-10) 5 Days Qty: 30 0RF No Action (DME) insulin syringe-needle U-100 [BD Insulin Syringe Ultra-Fine] 1 mL 31 gauge x 5/16 syringe See Dose Instructions .ROUTE .MEDSUPPLY Qty: 10 Rx Instructions: As directed (DME) OneTouch Ultra Blue Test Strip strip See Dose Instructions .ROUTE .MEDSUPPLY Qty: 10 Rx Instructions: As directed 6 times daily famotidine 20 mg tablet 20 mg PO BID carvedilol 6.25 mg tablet 6.25 mg PO BID Rx Instructions: must administer with a meal/food cetirizine [Zyrtec] 10 mg Tablet 10 mg PO DAILY aspirin 81 mg tablet,delayed release (DR/EC) See Rx Instructions .ROUTE .COMPLEX Qty: 90 3RF Dose Instruction: TAKE 1 TABLET DAILY Rx Instructions: TAKE 1 TABLET DAILY atorvastatin [Lipitor] 80 mg tablet 80 mg PO QHS Qty: 90 3RF (DME) Dexcom G6 Sensor Device See Rx Instructions .ROUTE .MEDSUPPLY Qty: 9 3RF Rx Instructions: As directed (DME) Dexcom G6 Transmitter Device See Rx Instructions .ROUTE .MEDSUPPLY Qty: 1 2RF Rx Instructions: As directed Humalog U-100 Insulin 100 unit/mL solution 130 unit continuous subcutaneous infusion .continuous Qty: 117 1RF Referrals / Follow Up: Deepak Mason MD [Primary Care Provider] - Disposition Disposition (needs filled in before D/C Order can be placed): Home, Self Care
--- NOTE | 2024-11-20 11:53 | PCM.POST.ANE ---
Anesthesia: Postop Eval I Current Vital Signs Temperature: 97.4 F Pulse Rate: 95 Blood Pressure: 157/91 Respiratory Rate: 16 Pulse Ox: 97 Assessment Airway patent: Yes Spontaneous unlabored respirations: Yes nausea: No Vomiting: No Anesthesia Complication: No Fluid Hydration Crystalloid volume administer (ml): 700 Total IV fluid infused: 700 Progress Note Anesthesia document: Postop Eval 1 completed: Yes
--- NOTE | 2024-11-20 12:16 | POSTOPAN2_ITS ---
Anesthesia Postop Eval I Sum Postop Eval Completion status Anesthesia document: Postop Eval 1 completed: Yes Anesthesia Postop Eval I Summary Anesthesia Postop Eval I Summary: Anesthesia Postop Eval I: Assessment Summary Airway patent Yes 11/20/24 11:53 [email or web address] Spontaneous unlabored Yes 11/20/24 11:53 [email or web address] respirations Mental status nausea No 11/20/24 11:53 [email or web address] Vomiting No 11/20/24 11:53 [email or web address] Anesthesia Postop Eval I: Fluid Summary Crystalloid volume administer 700 11/20/24 11:53 [email or web address] (ml) Colloids volume administered ( ml) Blood Product volume administered (ml) Total IV fluid infused 700 11/20/24 11:53 [email or web address] Anesthesia Postop Eval I: Summary Notes Anesthesia Complication No 11/20/24 11:53 [email or web address] Anesthesia Complication Comment: Post-operative progress note Anesthesia: Postop Eval II Evaluation Mental status: Awake Pain Level: 0 nausea: No Vomiting: No
--- NOTE | 2024-11-20 12:16 | PCM.POSTANE2 ---
Anesthesia Postop Eval I Sum Postop Eval Completion status Anesthesia document: Postop Eval 1 completed: Yes Anesthesia Postop Eval I Summary Anesthesia Postop Eval I Summary: Anesthesia Postop Eval I: Assessment Summary Airway patent Yes 11/20/24 11:53 [email or web address] Spontaneous unlabored Yes 11/20/24 11:53 [email or web address] respirations Mental status nausea No 11/20/24 11:53 [email or web address] Vomiting No 11/20/24 11:53 [email or web address] Anesthesia Postop Eval I: Fluid Summary Crystalloid volume administer 700 11/20/24 11:53 [email or web address] (ml) Colloids volume administered ( ml) Blood Product volume administered (ml) Total IV fluid infused 700 11/20/24 11:53 [email or web address] Anesthesia Postop Eval I: Summary Notes Anesthesia Complication No 11/20/24 11:53 [email or web address] Anesthesia Complication Comment: Post-operative progress note Anesthesia: Postop Eval II Evaluation Mental status: Awake Pain Level: 0 nausea: No Vomiting: No
== END 2024-11-20 13:29 | disposition home or self-care (01) ==
LOC: SDC 09:20 → AC 09:22
PROVIDERS: PCP Family Medicine; Referring Provider Surgery; Visit Provider Surgery
PROC: (CPT 46020; principal; 2024-11-20 10:45)
DX: K60.40 Rectal fistula, unspecified (principal); E10.9 Type 1 diabetes mellitus without complications; Z79.4 Long term (current) use of insulin; K61.0 Anal abscess; I10 Essential (primary) hypertension; E66.9 Obesity, unspecified; I25.2 Old myocardial infarction; K21.9 Gastro-esophageal reflux disease without esophagitis; I25.10 Atherosclerotic heart disease of native coronary artery without angina pectoris; Z95.1 Presence of aortocoronary bypass graft; Z96.41 Presence of insulin pump (external) (internal); Z68.33 Body mass index [BMI] 33.0-33.9, adult; Z79.82 Long term (current) use of aspirin; Z79.899 Other long term (current) drug therapy
CPT/HCPCS: 46020; 00902; 82962; J2405

== ENCOUNTER → 2025-07-06 | Outpatient (CLI) | payer BC, SELFPAY ==
[2021-08-14 08:27] VITALS: BMI 32.8
[2025-07-06 09:39] LABS: AST(SGOT) 256 U/L (<=37); Alanine Aminotransfer ALT/SGPT 96 U/L (<=46); Albumin, Serum 4.2 g/dL (3.5-5.0); Alkaline Phosphatase 75 U/L (40-129); Anion Gap 10 (7-18); BUN 18 mg/dL (4-19); BUN/Creat Ratio 18.1 RATIO (10-20); Calcium,Total 9.3 mg/dL (7.6-11.0); Carbon Dioxide 24.0 mmol/L (20.0-29.0); Chloride 104 mmol/L (96-106); Cholesterol 218 mg/dL (<=200); Globulin 2.8 g/dL (2.2-4.2); Glucose 175 mg/dL (70-99); Low Density Lipoprotein Calc. 153 mg/dL; Potassium 4.5 mmol/L (3.5-5.1); Triglycerides 61 mg/dL; Very Low Density Lipoprotein 12 mg/dL (5-40); cholesterol:hdl ratio screen 4.04
[2025-07-06 10:27] LABS: Creatinine, Urine (random) 318.00 mg/dL (39.00-259.00); Microalbumin,Random Urine 40.8 mg/L (<20 mg/L)
== END | disposition home or self-care (01) ==
LOC: LAB 08:22
PROVIDERS: PCP Family Medicine; Referring Provider Internal Medicine Endocrinology, Diabetes & Metabolism; Visit Provider Internal Medicine Endocrinology, Diabetes & Metabolism
DX: E10.9 Type 1 diabetes mellitus without complications (principal); Z96.41 Presence of insulin pump (external) (internal); I10 Essential (primary) hypertension; I25.10 Atherosclerotic heart disease of native coronary artery without angina pectoris; E78.2 Mixed hyperlipidemia
CPT/HCPCS: 36415; 80053; 80061; 82043; 82570; 84443